=== PATIENT | female | born 2000 | race Caucasian/White ===

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

== ENCOUNTER 2019-05-06 19:24 | Emergency (ER) | payer OTHER ==
[~2019-05-06] VITALS: Ht 160 cm; Wt 61.7 kg
[~2019-05-06 19:24] MED LIST: DOXY100C2 PO
[2019-05-06] MEDS ORDERED: KETOROLAC 30 MG/ML VIAL. IV ONE (20:15)
[2019-05-06] MEDS ORDERED: ONDANSETRON PF 4 MG/2 ML VIAL. IV ONE (20:15)
[2019-05-06 20:30] LABS: U PREG PATIENT NEGATIVE (NEG)
[2019-05-06 20:36] LABS: BASO # 0.1 x10^3/uL (0.0-0.2); BASO % 1 % (0-3); EOS # 0.1 x10^3/uL (0.0-0.7); EOS % 1 % (0-3); HEMATOCRIT 38.9 % (36.0-47.0); HEMOGLOBIN 13.1 g/dL (12.0-15.5); LYMPH # 3.2 x10^3/uL (1.0-4.8); LYMPH % 37 % (24-48); MEAN CORPUSCULAR HEMOGLOBIN 30 pg (25-35); MEAN CORPUSCULAR HGB CONC 34 g/dL (31-37); MEAN CORPUSCULAR VOLUME 88 fL (79-100); MONO # 0.8 x10^3/uL (0.0-1.1); MONO % 9 % (0-9); NEUT # 4.5 x10^3uL (1.8-7.7); NEUT % 53 % (31-73); PLATELET COUNT 228 x10^3/uL (140-400); RED BLOOD COUNT 4.41 x10^6/uL (3.50-5.40); RED CELL DISTRIBUTION WIDTH 12.7 % (11.5-14.5); WHITE BLOOD COUNT 8.7 x10^3/uL (4.0-11.0)
[2019-05-06 20:36] LABS: BACTERIA,URINE 0 /HPF (0-FEW); BILIRUBIN,URINE NEG (NEG); CLARITY,URINE CLEAR; COLOR,URINE YELLOW; GLUCOSE,URINE NEG (NEG); NITRITE,URINE NEG (NEG); RBC,URINE 0 /HPF (0-2); SQUAMOUS EPITHELIAL CELL,UR MOD /LPF; UROBILINOGEN,URINE 0.2 mg/dL (0.2 mg/dL)
[2019-05-06 20:50] LABS: ALBUMIN 3.9 g/dL (3.4-5.0); ALBUMIN/GLOBULIN RATIO 1.2 (1.0-1.7); CALCIUM 9.3 mg/dL (8.5-10.1); CREATININE 0.9 mg/dL (0.6-1.0); GFR 79.8; POTASSIUM 3.8 mmol/L (3.5-5.1); TOTAL BILIRUBIN 0.3 mg/dL (0.2-1.0); TOTAL PROTEIN 7.2 g/dL (6.4-8.2)
[2019-05-06] MEDS ORDERED: AZITHROMYCIN 200 MG/5 ML ORAL.SUSP. PO STA ×2 (21:33→22:49)
[2019-05-06] MEDS ORDERED: AZITHROMYCIN 250 MG TABLET. PO ONE ×2 (21:45→23:00)
[2019-05-06] MEDS ORDERED: cefTRIAXone IM 250 MG VIAL IM ONE (21:45)
[2019-05-06] MEDS ORDERED: LIDOCAINE 1% Multi-Dose 20 ML VIAL. ONE (22:50)
--- NOTE | 2019-05-06 22:53 | RAD ---
Complete pelvic ultrasound COMPARISON: CT pelvis November 12, 2018. TECHNIQUE: Transabdominal transducer with grayscale and duplex Doppler sonography was utilized. HISTORY: Lower abdominal pain. FINDINGS: Anteverted uterus measures 4.2 x 8.6 x 5.8 cm. No uterine mass documented. There is an echogenic shadowing intrauterine device. Endometrium thickness 0.7 cm. Left ovary measures 2.9 x 2.5 x 3.3 cm with a 2.5 cm unilocular anechoic structure likely a dominant follicle. Right ovary measures 1.8 x 2.8 x 1.9 cm. There is intact bilateral ovarian blood flow documented. No pelvic fluid. IMPRESSION: Intrauterine device. Otherwise negative exam. Electronically signed by: Agusto Summers MD (05/06/2019 10:50 PM) [id number]
[2019-05-06] MEDS ORDERED: AZITHROMYCIN 250 MG TABLET. ONE (22:57)
--- NOTE | 2019-05-06 23:12 | PHYS DOC ---
Past History Past Medical History: No Pertinent History Past Surgical History: No Surgical History Alcohol Use: None Drug Use: None Adult General Chief Complaint Chief Complaint: ABDOMINAL PAIN HPI HPI Patient is a 19-year-old female who presents with complaint of suprapubic abdominal discomfort and vaginal discharge intermittently for about the last 4 days. She denies any actual pain with urination. She states that the discharge at times has a fishy odor. She states that initially the discharge was clear but most recently it has been white. She denies any fever, nausea or vomiting. She indicates that she has had a few loose stools. Patient states that nothing seems to worsen or improve the symptoms.[] Review of Systems Review of Systems Constitutional: Denies fever or chills [] Respiratory: Denies cough or shortness of breath [] Cardiovascular: No additional information not addressed in HPI [] GI: Complains of lower abdominal discomfort without vomiting or diarrhea [] : Denies dysuria or hematuria. Positive vaginal discharge. [] Neurologic: Denies headache, focal weakness or sensory changes [] All other systems were reviewed and found to be within normal limits, except as documented in this note. Current Medications Current Medications Current Medications Medications (Trade) Dose Ordered Sig/Melanie Start Time Stop Time Status Last Admin Dose Admin Azithromycin (Zithromax Oral Susp) 1,000 mg 1X STAT 05/06/19 22:49 05/06/19 23:05 DC Azithromycin (Zithromax) 1,000 mg 1X ONCE 05/06/19 23:00 05/06/19 23:06 DC 05/06/19 23:01 1,000 MG Ceftriaxone Sodium (Rocephin Im) 250 mg 1X ONCE 05/06/19 21:45 05/06/19 21:46 DC 05/06/19 23:03 250 MG Ketorolac Tromethamine (Toradol 30mg Vial) 30 mg 1X ONCE 05/06/19 20:15 05/06/19 20:16 DC 05/06/19 20:33 30 MG Lidocaine HCl 20 ml STK-MED ONCE 05/06/19 22:50 05/06/19 22:51 DC Ondansetron HCl (Zofran) 4 mg 1X ONCE 05/06/19 20:15 05/06/19 20:16 DC 05/06/19 20:33 4 MG Allergies Allergies Allergies Coded Allergies Type Severity Reaction Last Updated Verified Penicillins Allergy Intermediate 2/19/19 Yes Physical Exam Physical Exam Constitutional: Well developed, well nourished, no acute distress, non-toxic appearance. [] HENT: Normocephalic, atraumatic, bilateral external ears normal, oropharynx moist, no oral exudates, nose normal. [] Eyes: PERRLA, EOMI, conjunctiva normal, no discharge. [] Neck: Normal range of motion, no tenderness, supple, no stridor. [] Cardiovascular:Heart rate regular rhythm, no murmur [] Lungs & Thorax: Bilateral breath sounds clear to auscultation [] Abdomen: Bowel sounds normal, soft, with suprapubic tenderness. [] Skin: Warm, dry, no erythema, no rash. [] Extremities: No tenderness, no cyanosis, no clubbing, ROM intact, no edema. [] Neurologic: Alert and oriented X 3, no focal deficits noted. [] Current Patient Data Vital Signs Vital Signs Date Time Temp Pulse Resp B/P (MAP) Pulse Ox O2 Delivery O2 Flow Rate FiO2 05/06/19 19:24 98.0 74 14 97 Room Air Lab Results Laboratory Tests Test 05/06/19 19:30 05/06/19 19:54 05/06/19 20:15 Urine Collection Type Unknown Urine Color Yellow Urine Clarity Clear Urine pH 5.0 Urine Specific [place] >=1.030 Urine Protein 30 mg/dl (NEG-TRACE) Urine Glucose (UA) Neg mg/dL (NEG) Urine Ketones (Stick) Trace mg/dL (NEG) Urine Blood Neg (NEG) Urine Nitrite Neg (NEG) Urine Bilirubin Neg (NEG) Urine Urobilinogen Dipstick 0.2 mg/dL (0.2 mg/dL) Urine Leukocyte Esterase Neg (NEG) Urine RBC 0 /HPF (0-2) Urine WBC 1-4 /HPF (0-4) Urine Squamous Epithelial Cells Mod /LPF Urine Bacteria 0 /HPF (0-FEW) Urine Mucus Mod /LPF Urine Test Negative (NEG) White Blood Count 8.7 x10^3/uL (4.0-11.0) Red Blood Count 4.41 x10^6/uL (3.50-5.40) Hemoglobin 13.1 g/dL (12.0-15.5) Hematocrit 38.9 % (36.0-47.0) Mean Corpuscular Volume 88 fL (79-100) Mean Corpuscular Hemoglobin 30 pg (25-35) Mean Corpuscular Hemoglobin Concent 34 g/dL (31-37) Red Cell Distribution Width 12.7 % (11.5-14.5) Platelet Count 228 x10^3/uL (140-400) Neutrophils (%) (Auto) 53 % (31-73) Lymphocytes (%) (Auto) 37 % (24-48) Monocytes (%) (Auto) 9 % (0-9) Eosinophils (%) (Auto) 1 % (0-3) Basophils (%) (Auto) 1 % (0-3) Neutrophils # (Auto) 4.5 x10^3uL (1.8-7.7) Lymphocytes # (Auto) 3.2 x10^3/uL (1.0-4.8) Monocytes # (Auto) 0.8 x10^3/uL (0.0-1.1) Eosinophils # (Auto) 0.1 x10^3/uL (0.0-0.7) Basophils # (Auto) 0.1 x10^3/uL (0.0-0.2) Sodium Level 141 mmol/L (136-145) Potassium Level 3.8 mmol/L (3.5-5.1) Chloride Level 106 mmol/L (98-107) Carbon Dioxide Level 26 mmol/L (21-32) Anion Gap 9 (6-14) Blood Urea Nitrogen 13 mg/dL (7-20) Creatinine 0.9 mg/dL (0.6-1.0) Estimated GFR (Cockcroft-Gault) 79.8 BUN/Creatinine Ratio 14 (6-20) Glucose Level 100 mg/dL (70-99) H Calcium Level 9.3 mg/dL (8.5-10.1) Total Bilirubin 0.3 mg/dL (0.2-1.0) Aspartate Amino Transferase (AST) 17 U/L (15-37) Alanine Aminotransferase (ALT) 16 U/L (14-59) Alkaline Phosphatase 100 U/L (46-116) Total Protein 7.2 g/dL (6.4-8.2) Albumin 3.9 g/dL (3.4-5.0) Albumin/Globulin Ratio 1.2 (1.0-1.7) Lipase 128 U/L (73-393) Microbiology 05/06/19 Wet Prep - Final, Complete EKG EKG [] Radiology/Procedures Radiology/Procedures [] Impressions: PROCEDURE: PELVIS COMPLETE Complete pelvic ultrasound COMPARISON: CT pelvis November 12, 2018. TECHNIQUE: Transabdominal transducer with grayscale and duplex Doppler sonography was utilized. HISTORY: Lower abdominal pain. FINDINGS: Anteverted uterus measures 4.2 x 8.6 x 5.8 cm. No uterine mass documented. There is an echogenic shadowing intrauterine device. Endometrium thickness 0.7 cm. Left ovary measures 2.9 x 2.5 x 3.3 cm with a 2.5 cm unilocular anechoic structure likely a dominant follicle. Right ovary measures 1.8 x 2.8 x 1.9 cm. There is intact bilateral ovarian blood flow documented. No pelvic fluid. IMPRESSION: Intrauterine device. Otherwise negative exam. Electronically signed by: Agusto Summers MD (05/06/2019 10:50 PM) [facility] Course & Med Decision Making Course & Med Decision Making Pertinent Labs and Imaging studies reviewed. (See chart for details) Patient moved to room upon arrival was evaluated by your medical staff after which an IV was established and blood work drawn. I did discuss pelvic exam with patient and indicated that alternatively she could perform collection of samples on her own. Patient preferred not to do the pelvic exam and to collect samples on her own. Dragon Disclaimer Dragon Disclaimer This electronic medical record was generated, in whole or in part, using a voice recognition dictation system. Departure Departure: Impression: Primary Impression: Suprapubic abdominal pain Additional Impression: Vaginal discharge Disposition: 01 HOME, SELF-CARE Condition: STABLE Referrals: ANTHONY GRIMES PA-C (PCP) Patient Instructions: Abdominal Pain Scripts Tramadol Hcl (TRAMADOL HCL) 50 Mg Tablet 50 MG PO PRN Q6HRS PRN for PAIN, #12 TAB Prov: JARED PARMAR Jr. DO 05/06/19 Problem Qualifiers JARED PARMAR Jr. DO May 06, 2019 23:12
[2019-05-06] MEDS ORDERED: TRAM50TA PO (23:21)
[2019-05-06 23:45] VITALS: BP 123/67
[2019-05-06] MEDS ORDERED: traMADol 50 MG TABLET ONE (23:58)
[2019-05-07] MEDS ORDERED: traMADol 50 MG TABLET PO ONE
[2019-05-08 18:11] LABS: CHLAMYDIA PROBE Negative (Negative)
== END 2019-05-07 | disposition home or self-care (01) ==
LOC: ER 19:24
DX: N89.8 Other specified noninflammatory disorders of vagina (principal); R10.30 Lower abdominal pain, unspecified; R19.7 Diarrhea, unspecified; Z88.0 Allergy status to penicillin
CPT/HCPCS: 36415; 76856; 80053; 81001; 81025; 83690; 85025; 87491; 87591; 96372; 96374; 96375; 99285; J0456; J0696; J1885; J2405; Q0111

== ENCOUNTER 2019-08-10 15:15 | Emergency (ER) | payer OTHER ==
[~2019-08-10 15:15] MED LIST changes: +TRAM50TA PO
[2019-08-10 15:22] VITALS: BP 109/67
[2019-08-10] MEDS ORDERED: AZIT250T6 PO (15:35)
--- NOTE | 2019-08-10 15:35 | PHYS DOC ---
Past History Past Medical History: No Pertinent History Past Surgical History: No Surgical History Alcohol Use: None Drug Use: None Adult General Chief Complaint Chief Complaint: SORE THROAT HPI HPI Patient is a 19-year-old female who presents with a sore throat and fever. She states is been ongoing for 2 days. She states she feels a little bit better than yesterday because the body aches have subsided. She denies any nausea or vomiting. She denies any rash. She has had a sick contact.[] Review of Systems Review of Systems Constitutional: Denies fever or chills [] Eyes: Denies change in visual acuity, redness, or eye pain [] HENT: Per history of present illness[] Respiratory: Denies cough or shortness of breath [] Cardiovascular: No additional information not addressed in HPI [] GI: Denies abdominal pain, nausea, vomiting, bloody stools or diarrhea [] : Denies dysuria or hematuria [] Musculoskeletal: Denies back pain or joint pain [] Integument: Denies rash or skin lesions [] Neurologic: Denies headache, focal weakness or sensory changes [] Endocrine: Denies polyuria or polydipsia [] All other systems were reviewed and found to be within normal limits, except as documented in this note. Allergies Allergies Allergies Coded Allergies Type Severity Reaction Last Updated Verified Penicillins Allergy Intermediate 11/12/18 Yes Physical Exam Physical Exam Constitutional: Well developed, well nourished, no acute distress, non-toxic appearance. [] HENT: Normocephalic, atraumatic, bilateral external ears normal, posterior pharynx is erythematous with tonsillar exudate[] Eyes: PERRLA, EOMI, conjunctiva normal, no discharge. [] Neck: Normal range of motion, no tenderness, supple, no stridor. [] Cardiovascular:Heart rate regular rhythm, no murmur [] Lungs & Thorax: Bilateral breath sounds clear to auscultation [] Abdomen: Bowel sounds normal, soft, no tenderness, no masses, no pulsatile masses. [] Skin: Warm, dry, no erythema, no rash. [] . [] Current Patient Data Vital Signs Vital Signs Date Time Temp Pulse Resp B/P (MAP) Pulse Ox O2 Delivery O2 Flow Rate FiO2 08/10/19 15:22 98.0 81 18 96 Room Air EKG EKG [] Radiology/Procedures Radiology/Procedures [] Course & Med Decision Making Course & Med Decision Making Pertinent Labs and Imaging studies reviewed. (See chart for details) [] Dragon Disclaimer Dragon Disclaimer This electronic medical record was generated, in whole or in part, using a voice recognition dictation system. Departure Departure: Impression: Primary Impression: Pharyngitis Disposition: HOME, SELF-CARE Condition: STABLE Referrals: ANTHONY GRIMES PA-C (PCP) Patient Instructions: Viral and Bacterial Pharyngitis Additional Instructions: Return to the emergency department with any new or concerning symptoms Scripts Azithromycin (AZITHROMYCIN TABLET) 250 Mg Tablet 1 PKG PO UD for bronchitis, #6 TAB Take 2 tablets today and then one tablet every day thereafter for the next 4 days Prov: ADRIANO CARDONA DO 08/10/19 Problem Qualifiers Primary Impression: Pharyngitis Pharyngitis/tonsillitis etiology: streptococcus Qualified Codes: J02.0 - Streptococcal pharyngitis ADRIANO CARDONA DO Aug 10, 2019 15:35
== END 2019-08-10 15:35 | disposition home or self-care (01) ==
LOC: ER 15:15
DX: J02.0 Streptococcal pharyngitis (principal); B95.0 Streptococcus, group A, as the cause of diseases classified elsewhere; Z88.0 Allergy status to penicillin
CPT/HCPCS: 99283

== ENCOUNTER 2019-09-17 22:10 | Emergency (ER) | payer OTHER ==
[~2019-09-17] VITALS: Ht 157.5 cm; Wt 61.2 kg
[~2019-09-17 22:10] MED LIST changes: +AZIT250T6 PO
[2019-09-17 22:51] LABS: BASO % 0 % (0-3); EOS % 1 % (0-3); HEMATOCRIT 36.2 % (36.0-47.0); HEMOGLOBIN 12.3 g/dL (12.0-15.5); LYMPH # 2.7 x10^3/uL (1.0-4.8); LYMPH % 35 % (24-48); MEAN CORPUSCULAR HEMOGLOBIN 30 pg (25-35); MEAN CORPUSCULAR HGB CONC 34 g/dL (31-37); MEAN CORPUSCULAR VOLUME 87 fL (79-100); MONO % 14 % (0-9); NEUT # 3.9 x10^3uL (1.8-7.7); NEUT % 51 % (31-73); PLATELET COUNT 198 x10^3/uL (140-400); RED BLOOD COUNT 4.17 x10^6/uL (3.50-5.40); RED CELL DISTRIBUTION WIDTH 12.7 % (11.5-14.5); WHITE BLOOD COUNT 7.6 x10^3/uL (4.0-11.0)
[2019-09-17 22:58] LABS: CALCIUM 8.4 mg/dL (8.5-10.1); CREATININE 0.8 mg/dL (0.6-1.0); GFR 91.4; POTASSIUM 3.6 mmol/L (3.5-5.1)
[2019-09-17 23:05] LABS: ALBUMIN 3.6 g/dL (3.4-5.0); TOTAL BILIRUBIN 0.2 mg/dL (0.2-1.0); TOTAL PROTEIN 7.1 g/dL (6.4-8.2)
[2019-09-17 23:13] LABS: U PREG PATIENT POSITIVE (NEG)
[2019-09-17 23:22] LABS: COLOR,URINE YELLOW
[2019-09-17 23:23] LABS: BACTERIA,URINE FEW /HPF (0-FEW); BILIRUBIN,URINE NEG (NEG); CLARITY,URINE HAZY; GLUCOSE,URINE NEG (NEG); NITRITE,URINE NEG (NEG); SQUAMOUS EPITHELIAL CELL,UR MOD /LPF
--- NOTE | 2019-09-17 23:24 | PHYS DOC ---
Past History Past Medical History: No Pertinent History Past Surgical History: No Surgical History Alcohol Use: None Drug Use: None Adult General Chief Complaint Chief Complaint: ABDOMINAL PAIN HPI HPI 19-year-old female presents with abdominal pain and vaginal discharge. The patient took a home test was +3 days ago. Since that time, she has had lower abdominal cramping that radiates into her low back. She's also had nausea and dry heaves. She denies fever or chills. The patient is in the and is also had some dizziness with PT the last couple days. She has had thin but increased volume of vaginal discharge. It is malodorous. She is sexually active. Review of Systems Review of Systems Constitutional: Denies fever or chills [] Eyes: Denies change in visual acuity, redness, or eye pain [] HENT: Denies nasal congestion or sore throat [] Respiratory: Denies cough or shortness of breath [] Cardiovascular: No additional information not addressed in HPI [] GI: Upper pubic abdominal pain, nausea, vomiting. Denies bloody stools or diarrhea [] : Increased vaginal discharge[] Musculoskeletal: Denies back pain or joint pain [] Integument: Denies rash or skin lesions [] Neurologic: Denies headache, focal weakness or sensory changes [] Endocrine: Denies polyuria or polydipsia [] All other systems were reviewed and found to be within normal limits, except as documented in this note. Allergies Allergies Allergies Coded Allergies Type Severity Reaction Last Updated Verified Penicillins Allergy Intermediate 11/12/18 Yes Physical Exam Physical Exam Constitutional: Well developed, well nourished, no acute distress, non-toxic appearance. [] HENT: Normocephalic, atraumatic, bilateral external ears normal, oropharynx moist, no oral exudates, nose normal. [] Eyes: PERRLA, EOMI, conjunctiva normal, no discharge. [] Neck: Normal range of motion, no tenderness, supple, no stridor. [] Cardiovascular:Heart rate regular rhythm, no murmur [] Lungs & Thorax: Bilateral breath sounds clear to auscultation [] Abdomen: Bowel sounds normal, soft, no tenderness, no masses, no pulsatile masses. [] Skin: Warm, dry, no erythema, no rash. [] Back: No tenderness, no CVA tenderness. [] Extremities: No tenderness, no cyanosis, no clubbing, ROM intact, no edema. [] Neurologic: Alert and oriented X 3, normal motor function, normal sensory function, no focal deficits noted. [] Psychologic: Affect normal, judgement normal, mood normal. [] Current Patient Data Vital Signs Vital Signs Date Time Temp Pulse Resp B/P (MAP) Pulse Ox O2 Delivery O2 Flow Rate FiO2 09/17/19 22:10 98.7 89 14 98 Room Air Lab Results Laboratory Tests Test 09/17/19 22:20 White Blood Count 7.6 x10^3/uL (4.0-11.0) Red Blood Count 4.17 x10^6/uL (3.50-5.40) Hemoglobin 12.3 g/dL (12.0-15.5) Hematocrit 36.2 % (36.0-47.0) Mean Corpuscular Volume 87 fL (79-100) Mean Corpuscular Hemoglobin 30 pg (25-35) Mean Corpuscular Hemoglobin Concent 34 g/dL (31-37) Red Cell Distribution Width 12.7 % (11.5-14.5) Platelet Count 198 x10^3/uL (140-400) Neutrophils (%) (Auto) 51 % (31-73) Lymphocytes (%) (Auto) 35 % (24-48) Monocytes (%) (Auto) 14 % (0-9) H Eosinophils (%) (Auto) 1 % (0-3) Basophils (%) (Auto) 0 % (0-3) Neutrophils # (Auto) 3.9 x10^3uL (1.8-7.7) Lymphocytes # (Auto) 2.7 x10^3/uL (1.0-4.8) Monocytes # (Auto) 1.0 x10^3/uL (0.0-1.1) Eosinophils # (Auto) 0.0 x10^3/uL (0.0-0.7) Basophils # (Auto) 0.0 x10^3/uL (0.0-0.2) Urine Test Positive (NEG) Sodium Level 137 mmol/L (136-145) Potassium Level 3.6 mmol/L (3.5-5.1) Chloride Level 102 mmol/L (98-107) Carbon Dioxide Level 24 mmol/L (21-32) Anion Gap 11 (6-14) Blood Urea Nitrogen 9 mg/dL (7-20) Creatinine 0.8 mg/dL (0.6-1.0) Estimated GFR (Cockcroft-Gault) 91.4 BUN/Creatinine Ratio 11 (6-20) Glucose Level 75 mg/dL (70-99) Calcium Level 8.4 mg/dL (8.5-10.1) L Total Bilirubin 0.2 mg/dL (0.2-1.0) Aspartate Amino Transferase (AST) 14 U/L (15-37) L Alanine Aminotransferase (ALT) 19 U/L (14-59) Alkaline Phosphatase 74 U/L (46-116) Total Protein 7.1 g/dL (6.4-8.2) Albumin 3.6 g/dL (3.4-5.0) Albumin/Globulin Ratio 1.0 (1.0-1.7) EKG EKG [] Radiology/Procedures Radiology/Procedures [] Impressions: Exam: Ultrasound OB less than 14 weeks Indication: Abnormal cramping Technique: Real-time grayscale and color Doppler images of the pelvis were obtained by the department pecan huller. Comparisons: 05/06/2019 FINDINGS: Uterus measures 11.1 x 7.6 x 6.1 cm. Within the endometrium there is a gestational sac with internal yolk sac and pole. [place]-rump length measured at 2.0 cm with a heart rate of 175 bpm Right ovary measures 3.3 x 2.7 x 2.3 cm. Left ovary measures 3.2 x 1.7 x 2.0 cm. Vascular flow noted within the ovaries bilaterally. No free fluid. IMPRESSION: 1. Single live intrauterine gestation measured at 8 weeks 4 days discordant with LMP. 2. Dedicated survey is recommended at 18-20 weeks gestation. Electronically signed by: Bayron Greene MD (09/18/2019 12:32 AM) [facility] DICTATED AND SIGNED BY: BAYRON GREENE MD DATE: 09/18/19 0032 CC: TASH HICKS DO; DELMA HUSTON POWER TECHNICIAN-C ~ Course & Med Decision Making Course & Med Decision Making Pertinent Labs and Imaging studies reviewed. (See chart for details) Patient is 8 weeks according to ultrasound. See official report for details. The patient's wet prep was significant for bacterial vaginosis. I will treat her with 2 g of Flagyl in the emergency room. The patient will follow up with OB to establish care. She is stable for discharge at this time. [] Dragon Disclaimer Dragon Disclaimer This electronic medical record was generated, in whole or in part, using a voice recognition dictation system. Departure Departure: Impression: Primary Impression: Additional Impression: Bacterial vaginosis in Disposition: HOME, SELF-CARE Condition: STABLE Referrals: DELMA HUSTON-Lor (PCP) Patient Instructions: Bacterial Vaginosis, [id number], - First Trimester, [id number] Problem Qualifiers Primary Impression: Weeks of gestation: 8 weeks Qualified Codes: Z3A.08 - 8 weeks gestation of TASH HICKS DO Sep 17, 2019 23:24
[2019-09-17] MEDS ORDERED: IV NORMAL SALINE 1,000ML 1,000 ML IV ONE (23:45)
--- NOTE | 2019-09-18 00:35 | RAD ---
Exam: Ultrasound OB less than 14 weeks Indication: Abnormal cramping Technique: Real-time grayscale and color Doppler images of the pelvis were obtained by the department centrifuge separator tender. Comparisons: 05/06/2019 FINDINGS: Uterus measures 11.1 x 7.6 x 6.1 cm. Within the endometrium there is a gestational sac with internal yolk sac and pole. [place]-rump length measured at 2.0 cm with a heart rate of 175 bpm Right ovary measures 3.3 x 2.7 x 2.3 cm. Left ovary measures 3.2 x 1.7 x 2.0 cm. Vascular flow noted within the ovaries bilaterally. No free fluid. IMPRESSION: 1. Single live intrauterine gestation measured at 8 weeks 4 days discordant with LMP. 2. Dedicated survey is recommended at 18-20 weeks gestation. Electronically signed by: Bayron Correia MD (09/18/2019 12:32 AM) [facility]
[2019-09-18 02:00] VITALS: BP 113/86
[2019-09-18] MEDS ORDERED: metroNIDAZOLE 500 MG TABLET PO ONE (02:00)
[2019-09-19 19:07] LABS: CHLAMYDIA PROBE Negative (Negative)
== END 2019-09-18 02:05 | disposition home or self-care (01) ==
LOC: ER 22:10
DX: O23.591 Infection of other part of genital tract in pregnancy, first trimester (principal); B96.89 Other specified bacterial agents as the cause of diseases classified elsewhere; Z3A.08 8 weeks gestation of pregnancy; Z88.0 Allergy status to penicillin
CPT/HCPCS: 36415; 76801; 76817; 80053; 81001; 81025; 84702; 85025; 87086; 87491; 87591; 99285; Q0111; J7030

== ENCOUNTER 2020-02-22 22:10 | Emergency (ER) | payer OTHER ==
[~2020-02-22] VITALS: Ht 160 cm; Wt 70.6 kg
--- NOTE | 2020-02-22 22:20 | PHYS DOC ---
Past History Past Medical History: No Pertinent History Past Medical History G2, Mis. carry 1 Past Surgical History: No Surgical History Alcohol Use: None Drug Use: None General Adult HPI: HPI: "...I been having some back pain.. and this rib spot hurts.. I have not taking any thing... I did not know what I could take.. but I was just getting co ncerned.. the back pain sometimes runs down my leg..numb/ shock..like... here on the right..." Patient is a 20 year old female who presents with above hx and complaints of lumbar sciatic pain on the right. Pain is worse on straight leg lift. Patient denies any problems with defecation or urination. Patient denies any fever or chills. Patient denies any vaginal discharge. Patient is 31 weeks gravid with her second . First was lost by miscarriage. With premature rupture of membranes. Patient denies any trauma. Patient denies any history of coagulopathy with her family members. Patient normally follows with ANN Simeon at [facility]. Pt. does take her vitamin. [place] recent travel outside the [place]. No specific ill contacts. Patient has not taken any Tylenol for her discomfort. Review of Systems: Review of Systems: Constitutional: Denies fever or chills Eyes: Denies change in visual acuity HENT: Denies nasal congestion or sore throat Respiratory: Denies cough or shortness of breath Cardiovascular: Denies chest pain or edema GI: Denies abdominal pain, nausea, vomiting, bloody stools or diarrhea : Denies dysuria Musculoskeletal: Complaints of Rt. lower back pain - Sciatica Integument: Denies rash Neurologic: Denies headache, focal weakness or sensory changes Endocrine: Denies polyuria or polydipsia Lymphatic: Denies swollen glands Psychiatric: Denies depression or anxiety Heart Score: Risk Factors: Risk Factors: DM, Current or recent (<one month) smoker, HTN, HLP, family history of CAD, obesity. Risk Scores: Score 0 - 3: 2.5% MACE over next 6 weeks - Discharge Home Score 4 - 6: 20.3% MACE over next 6 weeks - Admit for Clinical Observation Score 7 - 10: 72.7% MACE over next 6 weeks - Early Invasive Strategies Family History: Family History: Noncontributory to presentation Current Medications: Current Meds: See nursing for home medications Allergies: Allergies: Allergies Coded Allergies Type Severity Reaction Last Updated Verified Penicillins Allergy Intermediate 11/12/18 Yes Physical Exam: PE: Constitutional: Well developed, well nourished, no acute distress, non-toxic appearance. [] HENT: Normocephalic, atraumatic, bilateral external ears normal, oropharynx moist, no oral exudates, nose normal. [] Eyes: PERRLA, EOMI, conjunctiva normal, no discharge. [] Neck: Normal range of motion, no tenderness, supple, no stridor. [] Cardiovascular:Heart rate regular rhythm, no murmur [] Lungs & Thorax: Bilateral breath sounds equal apex on auscultation []. Some right lower floating rib pain at L2 level. Reproducible on palpation of a 1 cm area anterior axillary line. Abdomen: Bowel sounds normal, soft, no tenderness, no masses, no pulsatile masses. Gravid. Very active movements. heart rate variable. Count of 154 by ultrasound. No free fluid. No findings of hydronephrosis. Bedside ultrasound. Skin: Warm, dry, no erythema, no rash. [] Back: Rt. sciatic nerve tenderness, no CVA tenderness. [] Extremities: No tenderness, no cyanosis, no clubbing, ROM intact, no edema. [] Mild right sciatic tenderness on palpation Neurologic: Alert and oriented X 3, normal motor function, normal sensory function, no focal deficits noted. [] DTRs +2 patella. Psychologic: Affect anxious, judgement normal, mood normal. [] EKG: EKG: [] Radiology/Procedures: Radiology/Procedures: [] Course & Med Decision Making: Course & Med Decision Making Pertinent Labs and Imaging studies reviewed. (See chart for details) Patient to push fluids. Take Tylenol as needed for pain. Keep follow-up with her primary and nurse practitioner Cailin. Reviewed urine results with primary care. Return if any concerns. [] Pat Disclaimer: Pat Disclaimer: This electronic medical record was generated, in whole or in part, using a voice recognition dictation system. Departure Departure: Disposition: HOME/RESIDENCE PRIOR TO ADM Condition: STABLE Referrals: DELMA SIMEON (PCP) Scripts Acetaminophen (ACETAMINOPHEN) 500 Mg Tablet 1000 MG PO QIDPRN PRN for pain/fever, #120 TAB Prov: NICHOLE LIZ MD 02/22/20 Dragon Disclaimer This chart was dictated in whole or in part using Voice Recognition software in a busy, high-work load, and often noisy Emergency Department environment. It may contain unintended and wholly unrecognized errors or omissions. Dragon Disclaimer This chart was dictated in whole or in part using Voice Recognition software in a busy, high-work load, and often noisy Emergency Department environment. It may contain unintended and wholly unrecognized errors or omissions. NICHOLE LIZ MD February 22, 2020 22:20
[2020-02-22] MEDS ORDERED: ACETAMINOPHEN 500 MG TABLET PO ONE (22:30)
[2020-02-22 22:31] VITALS: BP 122/64
[2020-02-22 23:13] LABS: BARBITURATES NEG (NEG); BENZODIAZEPINES NEG (NEG); CANNABINOIDS NEG (NEG); COCAINE NEG (NEG); METHADONE NEG (NEG); OPIATES NEG (NEG); PHENCYCLIDINE NEG (NEG)
[2020-02-22 23:15] LABS: AMPHETAMINE/METHAMPHETAMINE NEG (NEG)
[2020-02-22 23:16] LABS: CLARITY,URINE HAZY; COLOR,URINE YELLOW; GLUCOSE,URINE NEG (NEG)
[2020-02-22 23:17] LABS: BACTERIA,URINE FEW /HPF (0-FEW); BILIRUBIN,URINE NEG (NEG); NITRITE,URINE NEG (NEG); RBC,URINE RARE /HPF (0-2); UROBILINOGEN,URINE 0.2 mg/dL (0.2 mg/dL)
[2020-02-22 23:18] LABS: AMORPHOUS SEDIMENT,UR PRESENT /HPF; SQUAMOUS EPITHELIAL CELL,UR FEW /LPF
[2020-02-22] MEDS ORDERED: ACET500T68 PO (23:41)
== END 2020-02-22 23:44 | disposition home or self-care (01) ==
LOC: ER 22:10
DX: O26.893 Other specified pregnancy related conditions, third trimester (principal); M54.42 Lumbago with sciatica, left side; R07.81 Pleurodynia; Z3A.31 31 weeks gestation of pregnancy; Z88.0 Allergy status to penicillin
CPT/HCPCS: 36415; 80307; 81001; 99284

== ENCOUNTER 2020-03-13 16:56 | Emergency (ER) | payer OTHER ==
[~2020-03-13] VITALS: Ht 160 cm; Wt 68.0 kg
[~2020-03-13 16:56] MED LIST changes: +ACET500T68 PO
--- NOTE | 2020-03-13 17:44 | PHYS DOC ---
Past History Past Medical History: No Pertinent History Past Surgical History: Other Additional Past Surgical Histo: wisdom teeth extraction Alcohol Use: None Drug Use: None General Adult EDM: Chief Complaint: SORE THROAT HPI: HPI: 20-year-old female presents with 2-day history of sore throat. She has no other significant symptoms. Her younger daughter has a runny nose, that is her only symptom. Patient denies fever or chills. No known COVID-19 exposures. Review of Systems: Review of Systems: Constitutional: Denies fever or chills Eyes: Denies change in visual acuity HENT: Sore throat Respiratory: Denies cough or shortness of breath Cardiovascular: Denies chest pain or edema GI: Denies abdominal pain, nausea, vomiting, bloody stools or diarrhea : Denies dysuria Musculoskeletal: Denies back pain or joint pain Integument: Denies rash Neurologic: Denies headache, focal weakness or sensory changes Endocrine: Denies polyuria or polydipsia Lymphatic: Denies swollen glands Psychiatric: Denies depression or anxiety Heart Score: Risk Factors: Risk Factors: DM, Current or recent (<one month) smoker, HTN, HLP, family history of CAD, obesity. Risk Scores: Score 0 - 3: 2.5% MACE over next 6 weeks - Discharge Home Score 4 - 6: 20.3% MACE over next 6 weeks - Admit for Clinical Observation Score 7 - 10: 72.7% MACE over next 6 weeks - Early Invasive Strategies Allergies: Allergies: Allergies Coded Allergies Type Severity Reaction Last Updated Verified Penicillins Allergy Intermediate 11/12/18 Yes Physical Exam: PE: Constitutional: Well developed, well nourished, no acute distress, non-toxic appearance. [] HENT: Normocephalic, atraumatic, bilateral external ears normal, oropharynx moist, no oral exudates, nose normal. [] Eyes: PERRLA, EOMI, conjunctiva normal, no discharge. [] Neck: Normal range of motion, no tenderness, supple, no stridor. [] Cardiovascular:Heart rate regular rhythm, no murmur [] Lungs & Thorax: Bilateral breath sounds clear to auscultation [] Abdomen: Bowel sounds normal, soft, no tenderness, no masses, no pulsatile masses. [] Skin: Warm, dry, no erythema, no rash. [] Back: No tenderness, no CVA tenderness. [] Extremities: No tenderness, no cyanosis, no clubbing, ROM intact, no edema. [] Neurologic: Alert and oriented X 3, normal motor function, normal sensory function, no focal deficits noted. [] Psychologic: Affect normal, judgement normal, mood normal. [] EKG: EKG: [] Radiology/Procedures: Radiology/Procedures: [] Course & Med Decision Making: Course & Med Decision Making Pertinent Labs and Imaging studies reviewed. (See chart for details) The patient's rapid strep is negative. This is likely viral pharyngitis or allergies. I have advised supportive care. She is stable for discharge at this time. [] Dragon Disclaimer: Dragon Disclaimer: This electronic medical record was generated, in whole or in part, using a voice recognition dictation system. Departure Departure: Impression: Primary Impression: Viral pharyngitis Disposition: HOME/RESIDENCE PRIOR TO ADM Condition: STABLE Referrals: LILY ELDRIDGE (PCP) Patient Instructions: Viral Pharyngitis Justification of Admission: Justification of Admission: Justification of Admission Dx: N/A TASH HICKS DO Mar 13, 2020 17:44
[2020-03-13 18:54] VITALS: BP 118/72
== END 2020-03-13 18:02 | disposition home or self-care (01) ==
LOC: ER 16:56
DX: O99.513 Diseases of the respiratory system complicating pregnancy, third trimester (principal); J02.9 Acute pharyngitis, unspecified; B97.89 Other viral agents as the cause of diseases classified elsewhere; Z3A.34 34 weeks gestation of pregnancy; Z88.0 Allergy status to penicillin
CPT/HCPCS: 87070; 87880; 99283

== ENCOUNTER 2020-10-26 10:11 | Emergency (ER) | payer OTHER ==
[~2020-10-26] VITALS: Ht 160 cm; Wt 65.1 kg
[2020-10-26 10:55] VITALS: BP 123/90
[2020-10-26 11:55] LABS: BASO # 0.1 x10^3/uL (0.0-0.2); BASO % 1 % (0-3); EOS # 0.1 x10^3/uL (0.0-0.7); EOS % 1 % (0-3); HEMATOCRIT 40.1 % (36.0-47.0); HEMOGLOBIN 13.4 g/dL (12.0-15.5); LYMPH # 2.2 x10^3/uL (1.0-4.8); LYMPH % 31 % (24-48); MEAN CORPUSCULAR HEMOGLOBIN 29 pg (25-35); MEAN CORPUSCULAR HGB CONC 33 g/dL (31-37); MEAN CORPUSCULAR VOLUME 86 fL (79-100); MONO # 0.5 x10^3/uL (0.0-1.1); MONO % 8 % (0-9); NEUT # 4.2 x10^3uL (1.8-7.7); NEUT % 60 % (31-73); PLATELET COUNT 261 x10^3/uL (140-400); RED BLOOD COUNT 4.66 x10^6/uL (3.50-5.40); RED CELL DISTRIBUTION WIDTH 12.7 % (11.5-14.5)
--- NOTE | 2020-10-26 12:01 | RAD ---
XR CHEST 1V 10/26/2020 11:31 AM INDICATION: Shortness of air COMPARISON: None available TECHNIQUE: Portable frontal view of the chest is provided. FINDINGS: The cardiomediastinal silhouette is within normal limits. Lungs are clear. There are no significant pleural effusions. There is no pulmonary vascular congestion. No pneumothora x. No suspicious osseous abnormality. IMPRESSION: There is no acute cardiopulmonary process. Electronically signed by: Rhea Benitez MD (10/26/2020 11:59 AM) [id number]
[2020-10-26 12:05] LABS: CALCIUM 8.9 mg/dL (8.5-10.1); CREATININE 0.9 mg/dL (0.6-1.0); POTASSIUM 3.8 mmol/L (3.5-5.1)
[2020-10-26 12:11] LABS: DIRECT BILIRUBIN 0.2 mg/dL (0.0-0.2); TOTAL BILIRUBIN 0.7 mg/dL (0.2-1.0); TOTAL PROTEIN 7.5 g/dL (6.4-8.2)
--- NOTE | 2020-10-26 12:30 | PHYS DOC ---
Past History Past Medical History: No Pertinent History Past Surgical History: No Surgical History Additional Past Surgical Histo: wisdom teeth extraction Alcohol Use: None Drug Use: None General Adult EDM: Chief Complaint: SOA HPI: HPI: This is a pleasant 20-year-old female recently diagnosed with Covid who presents emergency department with worsening shortness of breath. She describes shortness of breath in between walking to the bathroom. She denies chest pain or unilateral leg swelling. She denies hemoptysis. She denies history of DVT or PE. Her fever has abated however she does still have a mild cough. Review of systems negative for headache vomiting nuchal rigidity rashes. All other review of systems negative. ED course: 20-year-old female presenting with shortness of breath. Chest x-ray and blood work unremarkable. Negative D-dimer. Patient is well-appearing with normal oxygen levels with normal pulmonary examination. She is resting comfortably and breathing comfortably in examination room. We will discharge her to follow-up with her PCP in 1 to 2 days. The patient has been examined and was not found to have an emergency medical condition. The patient was then discharged home in stable condition to follow up with their primary care physician over the next 1-2 days. They were to return if their symptoms worsened or if they were concerned for any reason. They were also instructed to return to the emergency department if they were unable to get the recommended and appropriate follow-up. [id number] discharge instructions and return precautions were given. Patient's questions were answered to their satisfaction. Patient is comfortable with plan. Allergies: Allergies: Allergies Coded Allergies Type Severity Reaction Last Updated Verified Penicillins Allergy Intermediate 11/12/18 Yes Physical Exam: PE: Constitutional: Well developed, well nourished, no acute distress, non-toxic appearance. [] HENT: Normocephalic, atraumatic, bilateral external ears normal, oropharynx moist, no oral exudates, nose normal. [] Eyes: PERRLA, EOMI, conjunctiva normal, no discharge. [] Neck: Normal range of motion, no tenderness, supple, no stridor. [] Cardiovascular:Heart rate regular rhythm, no murmur [] Lungs & Thorax: Bilateral breath sounds clear to auscultation [] Abdomen: Bowel sounds normal, soft, no tenderness, no masses, no pulsatile masses. [] Skin: Warm, dry, no erythema, no rash. [] Back: No tenderness, no CVA tenderness. [] Extremities: No tenderness, no cyanosis, no clubbing, ROM intact, no edema. [] Neurologic: Alert and oriented X 3, normal motor function, normal sensory function, no focal deficits noted. [] Psychologic: Affect normal, judgement normal, mood normal. [] Current Patient Data: Labs: Laboratory Tests Test 10/26/20 11:19 10/26/20 11:35 POC Urine HCG, Qualitative hcg negative (Negative) White Blood Count 7.0 x10^3/uL (4.0-11.0) Red Blood Count 4.66 x10^6/uL (3.50-5.40) Hemoglobin 13.4 g/dL (12.0-15.5) Hematocrit 40.1 % (36.0-47.0) Mean Corpuscular Volume 86 fL (79-100) Mean Corpuscular Hemoglobin 29 pg (25-35) Mean Corpuscular Hemoglobin Concent 33 g/dL (31-37) Red Cell Distribution Width 12.7 % (11.5-14.5) Platelet Count 261 x10^3/uL (140-400) Neutrophils (%) (Auto) 60 % (31-73) Lymphocytes (%) (Auto) 31 % (24-48) Monocytes (%) (Auto) 8 % (0-9) Eosinophils (%) (Auto) 1 % (0-3) Basophils (%) (Auto) 1 % (0-3) Neutrophils # (Auto) 4.2 x10^3uL (1.8-7.7) Lymphocytes # (Auto) 2.2 x10^3/uL (1.0-4.8) Monocytes # (Auto) 0.5 x10^3/uL (0.0-1.1) Eosinophils # (Auto) 0.1 x10^3/uL (0.0-0.7) Basophils # (Auto) 0.1 x10^3/uL (0.0-0.2) D-Dimer (Bonnie) < 0.19 mg/L (0.00-0.50) Sodium Level 141 mmol/L (136-145) Potassium Level 3.8 mmol/L (3.5-5.1) Chloride Level 105 mmol/L (98-107) Carbon Dioxide Level 25 mmol/L (21-32) Anion Gap 11 (6-14) Blood Urea Nitrogen 12 mg/dL (7-20) Creatinine 0.9 mg/dL (0.6-1.0) Estimated GFR (Cockcroft-Gault) 79.0 Glucose Level 89 mg/dL (70-99) Calcium Level 8.9 mg/dL (8.5-10.1) Total Bilirubin 0.7 mg/dL (0.2-1.0) Direct Bilirubin 0.2 mg/dL (0.0-0.2) Aspartate Amino Transferase (AST) 12 U/L (15-37) L Alanine Aminotransferase (ALT) 22 U/L (14-59) Alkaline Phosphatase 71 U/L (46-116) Troponin I Quantitative < 0.017 ng/mL (0-0.055) Total Protein 7.5 g/dL (6.4-8.2) Albumin 4.0 g/dL (3.4-5.0) Lipase 116 U/L (73-393) EKG: EKG: [] Radiology/Procedures: Radiology/Procedures: [] Heart Score: Risk Factors: Risk Factors: DM, Current or recent (<one month) smoker, HTN, HLP, family history of CAD, obesity. Risk Scores: Score 0 - 3: 2.5% MACE over next 6 weeks - Discharge Home Score 4 - 6: 20.3% MACE over next 6 weeks - Admit for Clinical Observation Score 7 - 10: 72.7% MACE over next 6 weeks - Early Invasive Strategies Course & Med Decision Making: Course & Med Decision Making Pertinent Labs and Imaging studies reviewed. (See chart for details) [] Dragon Disclaimer: Dragon Disclaimer: This electronic medical record was generated, in whole or in part, using a voice recognition dictation system. Departure Departure: Impression: Primary Impression: COVID-19 Disposition: 01 DC HOME SELF CARE/HOMELESS Condition: STABLE Referrals: LILY ELDRIDGE (PCP) Additional Instructions: You have been tested for or diagnosed with COVID-19. It is an infection caused by a new type of coronavirus. COVID-19 will cause cold-like or mild flu symptoms in most. It can cause more severe symptoms like problems breathing in some. There is no treatment for COVID-19. The body will clear the infection over time. Self-care will help to ease discomfort. Steps to Take: Self-Care Rest as needed. Healthy habits may help you feel better. Steps include: Choose healthy foods including fruits and vegetables. Drink water throughout the day. Get plenty of sleep each night. If you smoke, try to quit. It may ease breathing. Avoid alcohol. Keep Others Healthy The virus can spread to others. Droplets are released every time you sneeze or cough. The droplets can get into the mouth, nose, or eyes of people near you and lead to i nfection. To lower the chances of spreading COVID-19 to others: Stay at home until your doctor has said it is safe to leave. If you tested positive this will mean staying isolated until both of the following are true: At least 7 days have passed since the start of illness. You are free of fever for at least 72 hours without the use of medicine. During this time: - Avoid public areas, events, or transportation. Do not return to work or school until your doctor has said it is safe to do so. - Call ahead if you need to go to a medical center. Let them know you may have COVID-19. It will help them guide you where to go. They may also ask you to wear a facemask when you come to the office. - If you call for emergency medical services, let them know you may have COVID- 19. While at home: - Try to avoid close contact with others. Stay about 6 feet away. - If possible, spend most of your time in a separate room from others. - Use a face mask if you will be in close contact with others such as sharing a room or vehicle. - Have someone wipe down common surfaces in the home. Use household restoration officer every day on areas like doorknobs, counters, or sinks. - Cough or sneeze into a tissue. Throw the tissue away right after use. If a tissue is not available, cough or sneeze into your elbow. - Wash your hands often. Wash them after sneezing or coughing. Use soap and water and wash for at least 20 seconds. Alcohol based hand road cleaner can be used if soap and water is not available. - Do not prepare food for others. Avoid sharing personal items like forks, spoons, or toothbrushes. - Avoid close contact with pets while you are sick. There is no evidence of the virus passing to pets. This is a safety step until more is known about this virus. Isolation can be frustrating. Social interaction can help. Keep in touch with friends and family through phone and tech options. You can still interact with others in your home, just keep a safe distance of about 6 feet. Follow-up: Your doctors office will check in with you to see if there are any changes in your health. You may be asked to keep track of symptoms to share with them. They will also let you know when you are clear to be in public again. Problems to Look Out For: Contact your doctor if your recovery is not going as you expect. Get emergency care if you have problems such as: - Trouble breathing - Nonstop chest pain or pressure - Changes in awareness, confusion, or problems waking - Lips or face have bluish color - Worsening of symptoms If you think you have an emergency, call for emergency medical services right away. [facility] MD Oct 26, 2020 12:30
== END 2020-10-26 12:51 | disposition home or self-care (01) ==
LOC: ER 10:11
DX: U07.1 COVID-19 (principal); Z88.0 Allergy status to penicillin
CPT/HCPCS: 36415; 71045; 80048; 80076; 81025; 83690; 84484; 85025; 85379; 99284

== ENCOUNTER 2021-01-25 20:21 | Emergency (ER) | payer OTHER ==
[~2021-01-25] VITALS: Ht 160 cm; Wt 65.1 kg
[2021-01-25] MEDS ORDERED: ONDANSETRON ODT 4 MG TAB.RAPDIS PO ONE (20:45)
[2021-01-25] MEDS ORDERED: CIPR500T94 PO (21:15)
[2021-01-25] MEDS ORDERED: CIPROFLOXACIN HCL 500 MG TABLET PO ONE (21:15)
--- NOTE | 2021-01-25 21:15 | PHYS DOC ---
Past History Past Medical History: Depression, Other Additional Past Medical Histor: COVID19 DIAGNOSIS ON 10/16/20 Past Surgical History: No Surgical History Additional Past Surgical Histo: wisdom teeth extraction Alcohol Use: Occasionally Drug Use: None Adult General Chief Complaint Chief Complaint: NAUSEA/VOMITING/DIARRHEA HPI HPI Patient is a 20-year-old female who presents with nausea and vomiting. States she ate some boneless chicken wings earlier in the day approximately an hour or so after eating it had a couple episodes of nonbloody nonbilious emesis. States she was doing fine before that. States she had had an episode in about 30 minutes or so. Denies any other recent travel, illnesses, fevers, known ill contacts, chest pain, shortness of breath, abdominal pain, dysuria, hematuria or blood in the stool. Review of Systems Review of Systems Review of systems otherwise unremarkable except noted in HPI. Current Medications Current Medications Current Medications Medications (Trade) Dose Ordered Sig/Melanie Start Time Stop Time Status Last Admin Dose Admin Ondansetron HCl (Zofran Odt) 8 mg 1X ONCE 01/25/21 20:45 01/25/21 20:56 DC Allergies Allergies Allergies Coded Allergies Type Severity Reaction Last Updated Verified Penicillins Allergy Intermediate 11/12/18 Yes Physical Exam Physical Exam Constitutional: Well developed, well nourished, no acute distress, non-toxic appearance. [] Cardiovascular:Heart rate regular rhythm, no murmur [] Lungs & Thorax: Bilateral breath sounds clear to auscultation [] Abdomen: Bowel sounds normal, soft, no tenderness, no masses, no pulsatile masses. [] Back: no CVA tenderness. [] Neurologic: Alert and oriented X 3, n no focal deficits noted. [] Psychologic: Affect normal, judgement normal, mood normal. [] Current Patient Data Vital Signs Vital Signs Date Time Temp Pulse Resp B/P (MAP) Pulse Ox O2 Delivery O2 Flow Rate FiO2 01/25/21 20:32 98.3 89 16 126/71 (89) 97 Room Air Lab Results Laboratory Tests Test 01/25/21 20:59 POC Urine HCG, Qualitative hcg negative (Negative) EKG EKG [] Radiology/Procedures Radiology/Procedures [] Heart Score C/O Chest Pain: No Risk Factors: Risk Factors: DM, Current or recent (<one month) smoker, HTN, HLP, family history of CAD, obesity. Risk Scores: Risk Factors: DM, Current or recent (<one month) smoker, HTN, HLP, family history of CAD, obesity. Course & Med Decision Making Course & Med Decision Making Patient is a 20-year-old female who presents with 2 episodes of nonbloody nonbilious emesis after eating chicken wings Vital signs not concerning. Physical exam noted above. Patient given oral Zofr an. Urinalysis not concerning. negative. On reassessment patient stated symptoms have completely resolved and was p.o. challenge successfully. Given nausea medicine for home. Advised to follow-up with primary care as needed. Given strict return precautions to the ED. Patient grateful, verbalized understanding and agreed with plan of discharge. [] Dragon Disclaimer Dragon Disclaimer This electronic medical record was generated, in whole or in part, using a voice recognition dictation system. Departure Departure: Impression: Primary Impression: Nausea & vomiting Disposition: HOME / SELF CARE / HOMELESS Condition: GOOD Referrals: DELMA CAMACHO-Lor (PCP) Patient Instructions: Urinary Tract Infection Additional Instructions: Please read all the attached information carefully. Please take your nausea medicine as prescribed. Please contact your primary care physician first thing in the morning to update on your ED visit. Please come back to the ED with new or concerning symptoms as discussed. Scripts Ondansetron Hcl (ZOFRAN) 4 Mg Tablet 1 TAB PO PRN Q6HRS PRN for NAUSEA for 2 Days, #6 TAB 2 Refills Prov: JUSTIN BRYAN MD 01/25/21 Ciprofloxacin Hcl (CIPRO) 500 Mg Tablet 1 TAB PO BID for uti for 3 Days, #6 TAB 0 Refills Prov: JUSTIN BRYAN MD 01/25/21 JUSTIN BRYAN MD January 25, 2021 21:15
[2021-01-25 21:33] LABS: CLARITY,URINE CLEAR; COLOR,URINE YELLOW
[2021-01-25 21:34] LABS: BACTERIA,URINE 0 /HPF (0-FEW); BILIRUBIN,URINE NEG (NEG); GLUCOSE,URINE NEG (NEG); NITRITE,URINE NEG (NEG); RBC,URINE 0 /HPF (0-2); UROBILINOGEN,URINE 0.2 mg/dL (0.2 mg/dL); WBC,URINE 0 /HPF (0-4)
[2021-01-25 21:35] LABS: AMORPHOUS SEDIMENT,UR PRESENT /HPF; SQUAMOUS EPITHELIAL CELL,UR MANY /LPF
[2021-01-25 22:26] VITALS: BP 120/74
[2021-01-25] MEDS ORDERED: ONDA4TAB7 PO (22:30)
== END 2021-01-25 22:35 | disposition home or self-care (01) ==
LOC: ER 20:21
DX: R11.2 Nausea with vomiting, unspecified (principal); Z88.0 Allergy status to penicillin
CPT/HCPCS: 81001; 81025; 99283; Q0162

== ENCOUNTER 2021-05-22 18:58 | Emergency (ER) | payer OTHER ==
[~2021-05-22] VITALS: Ht 160 cm; Wt 70.0 kg
[~2021-05-22 18:58] MED LIST changes: +CIPR500T94 PO; -DOXY100C2 PO; +DOXY100C3 PO; +ONDA4TAB7 PO
[2021-05-22] MEDS ORDERED: DOXYCYCLINE HYCLATE 100 MG TABLET PO ONE (19:30)
[2021-05-22] MEDS ORDERED: cefTRIAXone IM 500 MG VIAL. IM ONE (19:30)
[2021-05-22] MEDS ORDERED: DOXY100T PO (19:33)
[2021-05-22] MEDS ORDERED: OLOP5DRO13 OD (19:33)
--- NOTE | 2021-05-22 19:37 | PHYS DOC ---
Past History Past Medical History: Depression, Other Additional Past Medical Histor: COVID19 DIAGNOSIS ON 10/16/20 (CESAR BECKER APRN) Past Surgical History: No Surgical History Additional Past Surgical Histo: wisdom teeth extraction (CESAR BECKER APRN) Alcohol Use: Occasionally Drug Use: None (CESAR BECKER APRN) General Adult EDM: Chief Complaint: CHEST PAIN HPI: HPI: Patient is a 21-year-old female being seen in the ER for cough, sneezing, watery eyes, nasal congestion. Patient states that she feels like she has pain when she tries to take a deep breath. Patient denies any sick exposures, fevers, chest pain. Patient is also requesting STI testing, she states that her partner told her that she they were positive for gonorrhea. Patient denies any vaginal discharge, bleeding. Patient is also requesting to be prophylactically treated for STIs in the ER. Patient is vaccinated for COVID-19. Her vital signs are stable. (CESAR BECKER APRN) Review of Systems: Review of Systems: 14 body systems of the review of systems have been reviewed. See HPI for pertinent positive and negative responses, otherwise all other systems are negative, nonpertinent or noncontributory (CESAR BECKER APRN) Allergies: Allergies: Allergies Coded Allergies Type Severity Reaction Last Updated Verified Penicillins Allergy Intermediate 11/12/18 Yes (CESAR BECKER APRN) Physical Exam: PE: Constitutional: Well developed, well nourished, no acute distress, non-toxic appearance. [] HENT: Normocephalic, atraumatic, bilateral external ears normal, oropharynx moist, no oral exudates, watery right eye with mild erythema noted to conjunctiva, nose normal, mild pain with palpation of maxillary sinuses. [] Eyes: PERRLA, EOMI Neck: Normal range of motion, no tenderness, supple, no stridor. [] Cardiovascular:Heart rate regular rhythm, no murmur [] Lungs & Thorax: Bilateral breath sounds clear to auscultation [] Abdomen: Bowel sounds normal, soft, no tenderness, no masses, no pulsatile masses. [] Skin: Warm, dry, no erythema, no rash. [] Back: Normal range of motion Extremities: No tenderness, no cyanosis, no clubbing, ROM intact, no edema. [] Neurologic: Alert and oriented X 3, normal motor function, normal sensory function, no focal deficits noted. [] Psychologic: Affect normal, judgement normal, mood normal. [] (CESAR BECKER APRN) Current Patient Data: Labs: Laboratory Tests Test 05/22/21 19:44 Bedside Urine HCG, Qualitative hcg negative Current Medications Medications (Trade) Dose Ordered Sig/Melanie Route PRN Reason Start Time Stop Time Status Last Admin Dose Admin Ceftriaxone Sodium (Rocephin Im) 500 mg 1X ONCE IM 05/22/21 19:30 05/22/21 19:47 DC 05/22/21 19:50 Doxycycline Hyclate (Vibra-Tab) 100 mg 1X ONCE PO 05/22/21 19:30 05/22/21 19:47 DC 05/22/21 19:50 Doxycycline Hyclate (Vibra-Tab) 100 mg STK-MED ONCE .ROUTE 05/22/21 19:45 05/22/21 19:48 DC (CESAR BECKER APRN) EKG: EKG: [] (CESAR BECKER APRN) Radiology/Procedures: Radiology/Procedures: [] (CESAR BEKCER APRN) Heart Score: C/O Chest Pain: No (Denies chest pain, states it is hard for her to take a deep breath) Risk Factors: Risk Factors: DM, Current or recent (<one month) smoker, HTN, HLP, family history of CAD, obesity. Risk Scores: Score 0 - 3: 2.5% MACE over next 6 weeks - Discharge Home Score 4 - 6: 20.3% MACE over next 6 weeks - Admit for Clinical Observation Score 7 - 10: 72.7% MACE over next 6 weeks - Early Invasive Strategies (CESAR BECKER APRN) Course & Med Decision Making: Course & Med Decision Making Pertinent Labs and Imaging studies reviewed. (See chart for details) [] Patient is a 21-year-old female being seen in the ER for cough, sneezing, watery eyes, nasal congestion. Patient tested for COVID-19 in the ER and she will be notified of her results when they become available in approximately 2 days. Patient advised to self isolate until she receives these results. Patient's vital signs are stable, she is normal sinus rhythm, no hypoxia. Patient is nonlabored. Patient is requesting medication to help with her watery eyes. She states that she believes it is her seasonal allergies. Patient will be discharged home with Pataday eyedrops. Patient states that she had a positive exposure to gonorrhea and would like to be prophylactically treated for that. She was tested for STIs in the ER and will be notified of her results when they become available. Wet prep was resulted prior to discharge and it was negative for trichomoniasis or BV. Patient prophylactically treated for STIs in the ER. Patient will be discharged home with the remainder of her STI treatment which is doxycycline. Patient advised to take a daily Zyrtec for her allergic rhinitis. Patient vies to follow-up with her primary care provider. I discussed with patient all findings and diagnostic testing as well as the need to follow-up with PCP for further evaluation and treatment or return to the ER if any new or worsening symptoms. Strict return precautions were also discussed at length. Patient voiced understanding and agreement with the plan. Patient is hemodynamically stable at the time of disposition. (CESAR BECKER APRN) Course & Med Decision Making Did not see or evaluate patient. Did not discuss patient with BODY SHOP ESTIMATOR. Agree with BODY SHOP ESTIMATOR's work-up and disposition per note. (JUSTIN BRYAN MD) Dragon Disclaimer: Dragon Disclaimer: This electronic medical record was generated, in whole or in part, using a voice recognition dictation system. (CESAR BECKER APRN) Departure Departure: Impression: Primary Impression: Allergic conjunctivitis Qualified Codes: H10.11 - Acute atopic conjunctivitis, right eye Additional Impressions: Routine screening for STI (sexually transmitted infection) Person under investigation for COVID-19 Disposition: HOME / SELF CARE / HOMELESS Condition: GOOD Referrals: DELMA CAMACHO-C (PCP) Patient Instructions: Allergic Conjunctivitis, Sexually Transmitted Disease Additional Instructions: You are seen in the ER for cough, sneezing, watery eyes, nasal congestion, feeling like he cannot take a deep breath. Your physical exam was reassuring. Your vital signs are stable. You were tested for COVID-19 in the ER today, you will receive those results in 2 days. Please self isolate until you receive those results. You requested to be screened for STIs while in the ER. You will be notified of those results when they become available in approximately 2 days. You were prophylactically treated for STIs. Please start and finish antibiotic completely. You can take Zyrtec daily for your allergies. You are also being prescribed a eyedrop for allergic conjunctivitis which you can use 1 drop in your right eye twice a day. Please follow-up with your primary care provider tomorrow regarding your ER visit. If you develop worsening of your symptoms, shortness of breath, chest pain, high fevers refractory to treatment, intractable nausea or vomiting please return to the ER immediately. EMERGENCY DEPARTMENT GENERAL DISCHARGE INSTRUCTIONS Thank you for coming to [facility] (ED) today and trusting us with you care. We trust that you had a positivie experience in our Emergency Department. If you wish to speak to the department management, you may call the director at [phone]. YOUR FOLLOW UP INSTRUCTIONS ARE FOLLOWS: 1. Do you have a private Doctor? If you do not have a private doctor, please ask for a resource list of physicians or clinics that may be able to assist you with follow up care. 2. The Emergency Physician has interpreted your x-rays. The X-Ray specialist will also review them. If there is a change in the findings, you will be notified in 48 hours when at all possible. 3. A lab test or culture has been done, your results will be reviewed and you will be notified if you need a change in treatment. ADDITIONAL INSTRUCTIONS AND INFORMATION: 1. Your care today has been supervised by a physician who is specially trained in emergency care. Many problems require more than one evaluation for a complete diagnosis and treatment. We recommend that you schedule your follow up appointment as recommended to ensure complete treatment of you illness or injury. If you are unable to obtain follow up care and continue to have a problem, or if your condition worsens, we recommend that you return to the ED. 2. We are not able to safely determine your condition over the phone nor are we able to give sound medical advice over the phone. For these safety reasons, if you call for medical advice we will ask you to come to the ED for further evaluation. 3. If you have any questions regarding these discharge instructions please call the ED at [phone]. SAFETY INFORMATION: In the interest of safety, wellness, and injury prevention; we encourage you to wear your sealbelt, if you smoke; quite smoking, and we encourage family to use a protective helmet for bicycling and other sporting events that present an increased risk for head injury. IF YOUR SYMPTOMS WORSEN OR NEW SYMPTOMS DEVELOP, OR YOU HAVE CONCERNS ABOUT YOUR CONDITION; OR IF YOUR CONDITION WORSENS WHILE YOU ARE WAITING FOR YOUR FOLLOW UP APPOINTMENT; EITHER CONTACT YOUR PRIMARY CARE DOCTOR, THE PHYSICIAN WHOSE NAME AND NUMBER YOU WERE GIVEN, OR RETURN TO THE ED IMMEDIATELY. Scripts Olopatadine HCl (Olopatadine HCl) 5 Ml Drops 1 DROP OD BID for allergic conjuncitivitis for 7 Days, #5 ML 0 Refills Prov: CESAR BECKER APRN 05/22/21 Doxycycline Hyclate (DOXYCYCLINE HYCLATE) 100 Mg Tablet 1 TAB PO BID for sti for 7 Days, #14 TAB 0 Refills Prov: CESAR BECKER APRN 05/22/21 CESAR BECKER APRN May 22, 2021 19:37 JUSTIN BRYAN MD May 22, 2021 22:35
[2021-05-22] MEDS ORDERED: DOXYCYCLINE HYCLATE 100 MG TABLET ONE (19:45)
[2021-05-22 20:25] VITALS: BP 110/72
--- NOTE | 2021-05-22 21:17 | EKG ---
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
[2021-05-24 19:12] LABS: CHLAMYDIA PROBE Negative (Negative)
== END 2021-05-22 20:30 | disposition home or self-care (01) ==
LOC: ER 18:58
DX: Z11.3 Encounter for screening for infections with a predominantly sexual mode of transmission (principal); H10.11 Acute atopic conjunctivitis, right eye; Z20.822 Contact with and (suspected) exposure to COVID-19; Z88.0 Allergy status to penicillin
CPT/HCPCS: 81025; 87491; 87591; 93005; 96372; 99284; J0696; Q0111; U0003; C9803

== ENCOUNTER 2021-05-26 17:06 | Emergency (ER) | payer OTHER ==
[~2021-05-26] VITALS: Ht 160 cm; Wt 70.0 kg
[~2021-05-26 17:06] MED LIST changes: +DOXY100T PO; +OLOP5DRO13 OD
[2021-05-26 18:09] LABS: CLARITY,URINE HAZY; COLOR,URINE YELLOW
[2021-05-26 18:10] LABS: BACTERIA,URINE FEW /HPF (0-FEW); BILIRUBIN,URINE NEG (NEG); GLUCOSE,URINE NEG (NEG); NITRITE,URINE NEG (NEG); SQUAMOUS EPITHELIAL CELL,UR FEW /LPF; UROBILINOGEN,URINE 0.2 mg/dL (0.2 mg/dL); WBC,URINE RARE /HPF (0-4)
--- NOTE | 2021-05-26 18:56 | PHYS DOC ---
Past History Past Medical History: Depression, Other Additional Past Medical Histor: COVID19 DIAGNOSIS ON 10/16/20 (MICHAEL ROMERO APRN) Past Surgical History: Other Additional Past Surgical Histo: wisdom teeth extraction (MICHAEL ROMERO APRN) Alcohol Use: Occasionally Drug Use: None (MICHAEL ROMERO APRN) Adult General Chief Complaint Chief Complaint: VAGINAL BLEEDING HPI HPI Patient is a 21-year-old female who presents emergency department with chief complaint of abnormal periods. Patient reports having a normal period 2 weeks ago, reports starting period type bleeding again today. Patient reports that it has stopped since coming to the emergency department, denies low abdomen cramping, denies vaginal discharge, denies rashes to her vagina, denies increased urinary frequency, urinary pain, dysuria, burning with urination. Patient denies nausea, vomiting, diarrhea. Patient reports wanting to see an OB specialist here in the emergency department today. Patient denies any other physical complaints or physical concerns. (MICHAEL ROMERO APRN) Review of Systems Review of Systems 14 body systems of review of systems have been reviewed. See HPI for pertinent positives and negative responses, otherwise all other systems are negative, nonpertinent or noncontributory. Constitutional: Negative except as outlined in HPI above. Skin: Negative except as outlined in HPI above. Eyes: Negative except as outlined in HPI above. HENT: Negative except as outlined in HPI above. Respiratory: Negative except as outlined in HPI above. Cardiovascular: Negative except as outlined in HPI above. GI: Negative except as outlined in HPI above. : Negative except as outlined in HPI above. Musculoskeletal: Negative except as outlined in HPI above. Integument: Negative except as outlined in HPI above. Neurologic: Negative except as outlined in HPI above. Endocrine: Negative except as outlined in HPI above. Lymphatic: Negative except as outlined in HPI above. Psychiatric: Negative except as outlined in HPI above. (MICHAEL ROMERO APRN) Allergies Allergies Allergies Coded Allergies Type Severity Reaction Last Updated Verified Penicillins Allergy Intermediate 11/12/18 Yes (MICHAEL ROMERO APRN) Physical Exam Physical Exam Constitutional: Well developed, well nourished, no acute distress, non-toxic appearance. 21-year-old female in no apparent distress. HENT: Normocephalic, atraumatic. Eyes: Conjunctiva normal, no discharge. Neck: Normal range of motion, no stridor. Cardiovascular: No cyanosis appreciated, distal cap refill less than 2 seconds. Lungs & Thorax: Patient is in no respiratory distress, no audible adventitious lung sounds appreciated. Abdomen: Nontender, no abnormalities noted. Skin: Warm, dry, no erythema, no rash. Back: No tenderness, no deformities. Extremities: No tenderness, no cyanosis, no clubbing, ROM intact, no edema. Neurologic: Alert and oriented X 3, normal motor function, normal sensory function, no focal deficits noted. Psychologic: Affect normal, judgement normal, mood normal. (MICHAEL ROMERO APRN) Current Patient Data Vital Signs Vital Signs Date Time Temp Pulse Resp B/P (MAP) Pulse Ox O2 Delivery O2 Flow Rate FiO2 05/26/21 17:15 98.3 76 14 127/73 98 Lab Results Laboratory Tests Test 05/26/21 17:15 05/26/21 17:42 Urine Collection Type Void Urine Color Yellow Urine Clarity Hazy Urine pH 6.0 Urine Specific [place] >=1.030 Urine Protein Neg (NEG-TRACE) Urine Glucose (UA) Neg mg/dL (NEG) Urine Ketones (Stick) Neg mg/dL (NEG) Urine Blood Mod (NEG) Urine Nitrite Neg (NEG) Urine Bilirubin Neg (NEG) Urine Urobilinogen Dipstick 0.2 mg/dL (0.2 mg/dL) Urine Leukocyte Esterase Neg (NEG) Urine RBC 6-10 /HPF (0-2) Urine WBC Rare /HPF (0-4) Urine Squamous Epithelial Cells Few /LPF Urine Bacteria Few /HPF (0-FEW) Urine Mucus Mod /LPF POC Urine HCG, Qualitative hcg negative (Negative) (MICHAEL ROMERO APRN) EKG EKG [] (MICHAEL ROMERO APRN) Radiology/Procedures Radiology/Procedures [] (MICHAEL ROMERO APRN) Heart Score C/O Chest Pain: No Risk Factors: Risk Factors: DM, Current or recent (<one month) smoker, HTN, HLP, family history of CAD, obesity. Risk Scores: Risk Factors: DM, Current or recent (<one month) smoker, HTN, HLP, family history of CAD, obesity. (MICHAEL ROMERO APRN) Course & Med Decision Making Course & Med Decision Making Pertinent Labs and Imaging studies reviewed. (See chart for details) 21-year-old female, vital signs reviewed, presents emergency department concerning abnormal uterine bleeding. Patient reports vaginal bleeding stopped upon arrival to the emergency department, patient has refused pelvic examination, patient reports she wants to see an PSYCHIATRIC TECHNICIAN ASSISTANT here in the ER. Discussed with patient there is no PSYCHIATRIC TECHNICIAN ASSISTANT specialty here in this emergency department, however would like to obtain urinalysis assay and test, patient is amenable to this plan. The patient's urine is not infected, she is not per urine test. Discussed findings with patient, strict follow-up with PSYCHIATRIC TECHNICIAN ASSISTANT soon regarding abnormal uterine bleeding, patient is amenable to ED discharge planning. Patient continues to deny abdominal pains, abdominal cramping, and vaginal bleeding at time of discharge, patient is hemodynamically stable and in no apparent distress at time of discharge. Discussed with the patient all findings and diagnostic testing as well as the need to follow-up with their primary care provider for further evaluation and treatment or return to the ED if any new or worsening symptoms. Strict return precautions were also discussed at length, the patient voiced understanding and agreement with the discharge planning. The patient was nontoxic in appearance, in no apparent distress, and hemodynamically stable at the time of disposition. (MICHAEL ROMERO APRN) Dragon Disclaimer Dragon Disclaimer This electronic medical record was generated, in whole or in part, using a voice recognition dictation system. (MICHAEL ROMERO APRN) Departure Departure: Impression: Primary Impression: Abnormal uterine bleeding Disposition: HOME / SELF CARE / HOMELESS Condition: GOOD Referrals: DELMA CAMACHOP-C (PCP) Patient Instructions: Abnormal Uterine Bleeding Additional Instructions: You were seen today in the emergency department for abnormal uterine bleeding. As we discussed, please follow-up with your PSYCHIATRIC TECHNICIAN ASSISTANT specialist this coming week, call tomorrow for an appointment. Your provided urine sample did not show any signs of infection, you are not . Please return to the emergency department for worsening symptoms or other concerns. You may continue to use Tylenol and or Motrin for aches and pains. Thank you for visiting our Emergency Department. It was a pleasure taking care of you today in the emergency dep artment and we appreciate you trusting us with your care. If any additional problems come up don't hesitate to return to visit us. Please follow up with your primary care provider so they can plan additional care if needed and know about the problem that you had. If symptoms worsen come back to the Emergency Department. Any concerning symptoms that start such as chest pain, shortness of air, weakness or numbness on one side of the body, running high fevers or any other concerning symptoms return to the ER. Attending Signature Attending Signature I have participated in the care of this patient and I have reviewed and agree with all pertinent clinical information above including history, exam, and recommendations. (NICHOLE LIZ MD) MICHAEL ROMERO APRN May 26, 2021 18:56 NICHOLE LIZ MD May 30, 2021 08:33
[2021-05-26 19:00] VITALS: BP 112/64
== END 2021-05-26 19:00 | disposition home or self-care (01) ==
LOC: ER 17:10
DX: N93.8 Other specified abnormal uterine and vaginal bleeding (principal); Z88.0 Allergy status to penicillin
CPT/HCPCS: 81001; 81025; 99283

== ENCOUNTER 2021-09-26 12:13 | Emergency (ER) | payer OTHER ==
[~2021-09-26] VITALS: Ht 160 cm; Wt 68.5 kg
[2021-09-26 13:15] VITALS: BP 126/80
--- NOTE | 2021-09-26 13:52 | PHYS DOC ---
Past History Past Medical History: Depression, Other Additional Past Medical Histor: COVID19 DIAGNOSIS ON 10/16/20 Past Surgical History: Other Additional Past Surgical Histo: wisdom teeth extraction Alcohol Use: Occasionally Drug Use: None General Adult EDM: Chief Complaint: COUGH HPI: HPI: Patient is a 21-year-old female who presents to the emergency department with a 3-day history of sore throat, green productive cough, nasal congestion and drainage. Mother states that she has been taking cough drops at home for her symptoms. She is vaccinated for COVID-19 with [place]. They had a positive influenza exposure. Otherwise vital signs are stable and she is in no acute distress. She denies n/v, fevers Review of Systems: Review of Systems: Constitutional: see HPI HENT: See HPI Respiratory: See HPI GI: See HPI Allergies: Allergies: Allergies Coded Allergies Type Severity Reaction Last Updated Verified Penicillins Allergy Intermediate 11/12/18 Yes Physical Exam: PE: Constitutional: Well developed, well nourished, no acute distress, non-toxic appearance. [] HENT: Normocephalic, atraumatic, bilateral external ears normal, oropharynx moist, no oral exudates, nose normal. [] Eyes: PERRL, EOMI, conjunctiva normal, no discharge. [] Neck: Normal range of motion, no tenderness, supple, no stridor. [] Cardiovascular:Heart rate regular rhythm, no murmur [] Lungs & Thorax: Bilateral breath sounds clear to auscultation [] Abdomen: Bowel sounds normal, soft, no tenderness, no masses, no pulsatile masses. [] Skin: Warm, dry, no erythema, no rash. [] Back: Normal range of motion Extremities: No tenderness, no cyanosis, no clubbing, ROM intact, no edema. [] Neurologic: Alert and oriented X 3, normal motor function, normal sensory function, no focal deficits noted. [] Psychologic: Affect normal, judgement normal, mood normal. [] Current Patient Data: Labs: Laboratory Tests Test 09/26/21 13:30 Influenza Type A (Rapid) Negative Influenza Type B (Rapid) Negative EKG: EKG: [] Radiology/Procedures: Radiology/Procedures: [] Heart Score: C/O Chest Pain: N/A Risk Factors: Risk Factors: DM, Current or recent (<one month) smoker, HTN, HLP, family history of CAD, obesity. Risk Scores: Score 0 - 3: 2.5% MACE over next 6 weeks - Discharge Home Score 4 - 6: 20.3% MACE over next 6 weeks - Admit for Clinical Observation Score 7 - 10: 72.7% MACE over next 6 weeks - Early Invasive Strategies Course & Med Decision Making: Course & Med Decision Making Pertinent Labs and Imaging studies reviewed. (See chart for details) [] Patient presents to the emergency department for multiple symptoms including sore throat, productive cough, nasal congestion and drainage. Patient had a positive influenza exposure. She will be tested for influenza and COVID-19. Rapid influenza test was negative. She will be notified of her Covid results when they become available in approximately 2 days and is advised to self isolate until she receives these results. Educated on symptomatic treatment. I discussed with patient all findings and diagnostic testing as well as the need to follow-up with PCP for further evaluation and treatment or return to the ER if any new or worsening symptoms. Strict return precautions were also discussed at length. Patient voiced understanding and agreement with the plan. Patient is hemodynamically stable at the time of disposition. Dragon Disclaimer: aScentias Disclaimer: This electronic medical record was generated, in whole or in part, using a voice recognition dictation system. Departure Departure: Impression: Primary Impression: Person under investigation for COVID-19 Disposition: 01 HOME / SELF CARE / HOMELESS Condition: GOOD Referrals: DELMA CAMACHO-Lor (PCP) Patient Instructions: Cough, Adult Additional Instructions: You were seen in the emergency department today for cough, sore throat nasal congestion and drainage. Your rapid influenza test was negative. We tested you in the emergency department for COVID-19 you'll be notified of those results when they become available in approximately 1 to 2 days. Please self isolate until you receive these results. For your sore throat you can use warm salt water gargles. You can take Tylenol and/ibuprofen for any pain or fevers. For your cough you can take the cough medication that was prescribed for you. Follow-up with your primary care provider tomorrow regarding your ER visit. Please return to the emergency department if you develop shortness of breath, high fevers refractory to treatment, chest pain, tractable nausea or vomiting. Scripts Benzonatate (BENZONATATE) 200 Mg Capsule 1 CAP PO TID for cough for 5 Days, #15 CAP 0 Refills Prov: CESAR BECKER APRN 09/26/21 CESAR BECKER APRN Sep 26, 2021 13:52
[2021-09-26 14:15] LABS: INFLUENZA A PATIENT NEGATIVE (NEGATIVE); INFLUENZA B PATIENT NEGATIVE (NEGATIVE)
[2021-09-26] MEDS ORDERED: BENZ200C47 PO (14:23)
== END 2021-09-26 14:50 | disposition home or self-care (01) ==
LOC: ER 12:13
DX: J02.9 Acute pharyngitis, unspecified (principal); R05.9 Cough, unspecified; R09.81 Nasal congestion; Z20.822 Contact with and (suspected) exposure to COVID-19; Z88.0 Allergy status to penicillin
CPT/HCPCS: 87804; 99283; C9803; U0003

== ENCOUNTER 2021-10-09 21:08 | Emergency (ER) | payer OTHER ==
[~2021-10-09] VITALS: Ht 160 cm; Wt 68.5 kg
[~2021-10-09 21:08] MED LIST changes: +BENZ200C47 PO
--- NOTE | 2021-10-09 21:25 | PHYS DOC ---
Past History Past Medical History: Depression, Other Additional Past Medical Histor: COVID19 DIAGNOSIS ON 10/16/20 (CESAR BECKER APRN) Past Surgical History: Other Additional Past Surgical Histo: wisdom teeth extraction (CESAR BECKER APRN) Alcohol Use: Occasionally Drug Use: None (CESAR BECKER APRN) General Adult EDM: Chief Complaint: MULTIPLE COMPLAINTS HPI: HPI: Patient is a 21-year-old female who presents to the emergency department for multiple complaints. Patient is reporting nasal congestion and drainage, body aches, productive cough, shortness of breath, chest wall pain with deep inspiration and cough, nausea. Patient reported that her symptoms started yesterday. She denies any fevers or chest pain. She reports that her is positive for influenza and her coworker was positive for COVID-19. She has no medical history or surgeries. Her vital signs are stable and she is in no acute distress. (CESAR BECKER APRN) Review of Systems: Review of Systems: Constitutional: negative unless reported in HPI Eyes: negative unless reported in HPI HENT: negative unless reported in HPI Respiratory: negative unless reported in HPI Cardiovascular: negative unless reported in HPI GI: negative unless reported in HPI : negative unless reported in HPI Musculoskeletal: negative unless reported in HPI Integument: negative unless reported in HPI Neurologic: negative unless reported in HPI Endocrine: negative unless reported in HPI Lymphatic: negative unless reported in HPI Psychiatric: negative unless reported in HPI (CESAR BECKER APRN) Allergies: Allergies: Allergies Coded Allergies Type Severity Reaction Last Updated Verified Penicillins Allergy Intermediate 11/12/18 Yes (CESAR BECKER APRN) Physical Exam: PE: Constitutional: Well developed, well nourished, no acute distress, non-toxic appearance. [] HENT: Normocephalic, atraumatic, bilateral external ears normal, oropharynx moist, no oral exudates, nose normal. [] Eyes: PERRL, EOMI, conjunctiva normal, no discharge. [] Neck: Normal range of motion, no tenderness, supple, no stridor. [] Cardiovascular:Heart rate regular rhythm, no murmur, chest wall pain reproducible with deep inspiration and cough [] Lungs & Thorax: Bilateral breath sounds clear to auscultation [] Abdomen: Bowel sounds normal, soft, no tenderness, no masses, no pulsatile masses. [] Skin: Warm, dry, no erythema, no rash. [] Back: Normal range of motion Extremities: No tenderness, no cyanosis, no clubbing, ROM intact, no edema. [] Neurologic: Alert and oriented X 3, normal motor function, normal sensory function, no focal deficits noted. [] Psychologic: Affect normal, judgement normal, mood normal. [] (CESAR BECKER APRN) Current Patient Data: Labs: Laboratory Tests Test 10/09/21 21:20 10/09/21 21:30 Urine Collection Type Clean catch Urine Color Yellow Urine Clarity Clear Urine pH 6.0 Urine Specific [place] 1.025 Urine Protein Trace Urine Glucose (UA) Neg mg/dL Urine Ketones (Stick) Neg mg/dL Urine Blood Neg Urine Nitrite Neg Urine Bilirubin Neg Urine Urobilinogen Dipstick 2.0 mg/dL Urine Leukocyte Esterase Neg Urine RBC 0 /HPF Urine WBC 0 /HPF Urine Squamous Epithelial Cells Few /LPF Urine Bacteria 0 /HPF Bedside Urine HCG, Qualitative hcg negative (CESAR BECKER APRN) EKG: EKG: [] (CESAR BECKER APRN) Radiology/Procedures: Radiology/Procedures: [] (CESAR BECKER APRN) Heart Score: C/O Chest Pain: No Risk Factors: Risk Factors: DM, Current or recent (<one month) smoker, HTN, HLP, family history of CAD, obesity. Risk Scores: Score 0 - 3: 2.5% MACE over next 6 weeks - Discharge Home Score 4 - 6: 20.3% MACE over next 6 weeks - Admit for Clinical Observation Score 7 - 10: 72.7% MACE over next 6 weeks - Early Invasive Strategies (CESAR BECKER APRN) Course & Med Decision Making: Course & Med Decision Making Pertinent Labs and Imaging studies reviewed. (See chart for details) [] Patient presents to the emergency department for nasal congestion/drainage, body aches, cough, shortness of breath, nausea. Patient will be tested for inf luenza and COVID-19. Her rapid influenza test was positive and her rapid COVID test was negative. Chest x-ray performed to rule out pneumonia that showed no acute findings as read by this ZIG [employer]AG STITCHER and supervising physician. Urinalysis showed no acute findings.. Patient's labs are stable and she is in no distress. Patient educated on symptomatic treatment. I discussed with patient all findings and diagnostic testing as well as the need to follow-up with PCP for further evaluation and treatment or return to the ER if any new or worsening symptoms. Strict return precautions were also discussed at length. Patient voiced understanding and agreement with the plan. Patient is hemodynamically stable at the time of disposition. (CESAR BECKER APRN) Dragon Disclaimer: Dragon Disclaimer: This electronic medical record was generated, in whole or in part, using a voice recognition dictation system. (CESAR BECKER APRN) Departure Departure: Impression: Primary Impression: Influenza A Disposition: HOME / SELF CARE / HOMELESS Condition: GOOD Referrals: DELMA CAMACHO (PCP) Patient Instructions: Influenza A (H1N1) Additional Instructions: You are seen in the emergency department today for multiple complaints. Your rapid influenza test was positive and your rapid COVID test was negative. Urinalysis was negative.. Chest x-ray was performed that showed pneumonia that showed no acute findings. You are being discharged home with a prescription for Tamiflu. You can take Delsym [id number] for your cough. Increase your fl uids to thin your secretions. Take Tylenol and ibuprofen for any pain or fevers. For your nasal congestion you can also use Flonase [id number]-[id number] and saline nose sprays. Follow-up with your primary care provider tomorrow regarding your ER visit. Return to the emergency department if you develop high fevers refractory to treatment, intractable nausea or vomiting, shortness of breath, chest pain, weakness. Scripts Oseltamivir Phosphate (TAMIFLU) 75 Mg Capsule 1 CAP PO BID for flu for 5 Days, #10 CAP 0 Refills Prov: CESAR BECKER APRN 10/09/21 Attending Signature Attending Signature I have participated in the care of this patient and I have reviewed and agree with all pertinent clinical information above including history, exam, and recommendations. (NICHOLE LIZ MD) CESAR BECKER APRN Oct 09, 2021 21:25 NICHOLE LIZ MD Oct 10, 2021 01:51
[2021-10-09 21:45] LABS: BACTERIA,URINE 0 /HPF (0-FEW); BILIRUBIN,URINE NEG (NEG); CLARITY,URINE CLEAR; COLOR,URINE YELLOW; GLUCOSE,URINE NEG (NEG); NITRITE,URINE NEG (NEG); RBC,URINE 0 /HPF (0-2); WBC,URINE 0 /HPF (0-4)
[2021-10-09 21:46] LABS: SQUAMOUS EPITHELIAL CELL,UR FEW /LPF
[2021-10-09 21:57] LABS: INFLUENZA B PATIENT NEGATIVE (NEGATIVE)
[2021-10-09 21:59] LABS: INFLUENZA A PATIENT POSITIVE (NEGATIVE)
[2021-10-09] MEDS ORDERED: OSEL75CA PO (22:01)
[2021-10-09 22:10] VITALS: BP 109/67
--- NOTE | 2021-10-09 22:49 | RAD ---
EXAM: XR CHEST 1V 10/09/2021 9:30 PM CLINICAL INDICATION: Shortness of air COMPARISON: Chest radiograph 10/26/2020 TECHNIQUE: AP view of the chest FINDINGS: The heart is normal size. Lungs are well-expanded. There are subtle right perihilar opacit ies suspicious for pneumonia. The left lung is clear. No pleural effusion or pneumothorax. No acute o sseous abnormality. IMPRESSION: Subtle right perihilar opacities suspicious for pneumonia. Electronically signed by: Susan Sandoval MD (10/09/2021 10:46 PM) [id number]
== END 2021-10-09 22:10 | disposition home or self-care (01) ==
LOC: ER 21:08
DX: J10.1 Influenza due to other identified influenza virus with other respiratory manifestations (principal); Z20.822 Contact with and (suspected) exposure to COVID-19; Z88.0 Allergy status to penicillin
CPT/HCPCS: 71045; 81001; 81025; 87428; 99284; C9803; U0003

== ENCOUNTER 2021-10-29 13:21 | Emergency (ER) | payer OTHER ==
[~2021-10-29] VITALS: Ht 160 cm; Wt 68.5 kg
[~2021-10-29 13:21] MED LIST changes: +OSEL75CA PO
[2021-10-29 13:25] VITALS: BP 124/55
[2021-10-29] MEDS ORDERED: IBUPROFEN 600 MG TABLET. PO ONE (13:45)
--- NOTE | 2021-10-29 14:04 | RAD ---
Three-view left foot dated 10/29/2021. No comparison available. CLINICAL INDICATION: Pain. FINDINGS: 3 views left foot show normal bony alignment. No displaced fracture. No periostitis or bone destructi on. No acute osseous or articular abnormality. IMPRESSION: No acute radiographic abnormality. Electronically signed by: Radames Silva MD (10/29/2021 2:02 PM) [id number]
--- NOTE | 2021-10-29 14:21 | PHYS DOC ---
Past History Past Medical History: Depression, Other Additional Past Medical Histor: COVID19 DIAGNOSIS ON 10/16/20 (RADAMES ROMERO APRN) Past Surgical History: Other Additional Past Surgical Histo: wisdom teeth extraction (RADAMES ROMERO APRN) Alcohol Use: None Drug Use: None (RADAMES ROMERO APRN) Adult General Chief Complaint Chief Complaint: LACERATION/AVULSION HPI HPI Patient is a 21-year-old female presents emergency department with chief complaint of left foot pain with a laceration to her left foot after accidentally kicking a metal heater vent just prior to arrival to the emergency department. Patient reports her last tetanus immunization was less than 5 years ago. Did not take any pain medications prior to arrival to the ER. Denies other injury to her body. Reports her last menstrual cycle was October 132021. Reports a 5 out of 10 pain. (RADAMES ROMERO APRN) Review of Systems Review of Systems 14 body systems of review of systems have been reviewed. See HPI for pertinent positives and negative responses, otherwise all other systems are negative, nonpertinent or noncontributory. Constitutional: Negative except as outlined in HPI above. Skin: Negative except as outlined in HPI above. Eyes: Negative except as outlined in HPI above. HENT: Negative except as outlined in HPI above. Respiratory: Negative except as outlined in HPI above. Cardiovascular: Negative except as outlined in HPI above. GI: Negative except as outlined in HPI above. : Negative except as outlined in HPI above. Musculoskeletal: Negative except as outlined in HPI above. Integument: Negative except as outlined in HPI above. Neurologic: Negative except as outlined in HPI above. Endocrine: Negative except as outlined in HPI above. Lymphatic: Negative except as outlined in HPI above. Psychiatric: Negative except as outlined in HPI above. (RADAMES ROMERO APRN) Current Medications Current Medications Current Medications Medications (Trade) Dose Ordered Sig/Melanie Start Time Stop Time Status Last Admin Dose Admin Ibuprofen (Motrin) 600 mg 1X ONCE 10/29/21 13:45 10/29/21 13:56 DC 10/29/21 13:50 600 MG (RADAMES ROMERO APRN) Allergies Allergies Allergies Coded Allergies Type Severity Reaction Last Updated Verified Penicillins Allergy Intermediate 11/12/18 Yes (RADAMES ROMERO APRN) Physical Exam Physical Exam Constitutional: Well developed, well nourished, no acute distress, non-toxic appearance. 21-year-old female in no apparent distress. HENT: Normocephalic, atraumatic. Eyes: Conjunctiva normal, no discharge. Neck: Normal range of motion, no stridor. Cardiovascular: No cyanosis appreciated, distal cap refill less than 2 seconds. Lungs & Thorax: Patient is in no respiratory distress, no audible adventitious lung sounds appreciated. Abdomen: Nontender, no abnormalities noted. Skin: Warm, dry, no erythema, no rash. Back: No tenderness, no deformities. Extremities: No tenderness, no cyanosis, no clubbing, ROM intact, no edema. Except for left foot, 2 cm linear abrasion to top of foot, 2 mm abrasion to tip of left #4 toe, no bleeding. No contusion appreciated, no deformity appreciated, 2+ dorsalis pedis/posterior tibial pulses equal bilaterally. Distal cap refill less than 2seconds feet equal bilaterally. Neurologic: Alert and oriented X 3, normal motor function, normal sensory function, no focal deficits noted. Psychologic: Affect normal, judgement normal, mood normal. (RADAMES ROMERO APRN) Current Patient Data Vital Signs Vital Signs Date Time Temp Pulse Resp B/P (MAP) Pulse Ox O2 Delivery O2 Flow Rate FiO2 10/29/21 13:25 98.0 78 16 124/55 (78) 98 Room Air (RADAMES ROMERO APRN) EKG EKG [] (RADAMES ROMERO APRN) Radiology/Procedures Radiology/Procedures REASON: Blunt trauma, foot pain PROCEDURE: FOOT LEFT 3V Three-view left foot dated 10/29/2021. No comparison available. CLINICAL INDICATION: Pain. FINDINGS: 3 views left foot show normal bony alignment. No displaced fracture. No periostitis or bone destruction. No acute osseous or articular abnormality. IMPRESSION: No acute radiographic abnormality. Electronically signed by: Radames Silva MD (10/29/2021 2:02 PM) [id number] (RADAMES ROMERO APRN) Heart Score C/O Chest Pain: No Risk Factors: Risk Factors: DM, Current or recent (<one month) smoker, HTN, HLP, family history of CAD, obesity. Risk Scores: Risk Factors: DM, Current or recent (<one month) smoker, HTN, HLP, family history of CAD, obesity. (RADAMES ROMERO APRN) Course & Med Decision Making Course & Med Decision Making Pertinent Labs and Imaging studies reviewed. (See chart for details) 21-year-old female, vital signs reviewed, presents emergency department concerning left foot injury after kicking a metal floor event just prior to arrival to the ER. Physical examination concerning for minor superficial abrasion to top of left foot and #4 toe distal tip. Will x-ray related to patient's explanation of events. Cleanse abrasions and apply antibiotic ointment. X-rays negative for acute fracture, discussed x-ray findings with patient, daily abrasion care for foot, return to ER precautions or concerns, follow-up primary care for reevaluation soon, patient gave verbal understanding of and is amenable to ED discharge planning. Discussed with the patient all findings and diagnostic testing as well as the need to follow-up with their primary care provider for further evaluation and treatment or return to the ED if any new or worsening symptoms. Strict return precautions were also discussed at length, the patient voiced understanding and agreement with the discharge planning. The patient was nontoxic in appearance, in no apparent distress, and hemodynamically stable at the time of disposition. (RADAMES ROMERO APRN) Dragon Disclaimer Dragon Disclaimer This electronic medical record was generated, in whole or in part, using a voice recognition dictation system. (RADAMES ROMERO APRN) Attending Co-Sign The patient was seen and interviewed as well as examined at the bedside. The chart was reviewed. The case was discussed. Agree with the plan of care. (TASH HICKS DO) Departure Departure: Impression: Primary Impression: Abrasion, left foot, initial encounter Disposition: HOME / SELF CARE / HOMELESS Condition: GOOD Referrals: DELMA CAMACHO TELEVISION MECHANIC-C (PCP) Patient Instructions: Abrasions Additional Instructions: You were seen today in the emergency department for left foot injury. X-rays of your left foot were not concerning for any broken bones or other injury. You do have minor abrasions to your left foot, please keep clean and dry, daily cleansing with mild soap and water and application of an antibiotic ointment such as bacitracin or Neosporin 2-3 times a day, you may cover with a Band-Aid when wearing socks and shoes. You had indicated your tetanus immunization is up-to-date, watch for signs and symptoms of infection. Infection is unlikely if you wash with soap and water and apply antibiotic ointment daily. Follow-up with your primary care provider for reevaluation this week on the [facility]. Return to the emergency department for worsening symptoms or other concerns. Thank you for visiting our Emergency Department. It was a pleasure taking care of you today in the emergency department and we appreciate you trusting us with your care. If any additional problems come up don't hesitate to return to visit us. Please follow up with your primary care provider so they can plan additional care if needed and know about the problem that you had. If symptoms worsen come back to the Emergency Department. Any concerning symptoms that start such as chest pain, shortness of air, weakness or numbness on one side of the body, running high fevers or any other concerning symptoms return to the ER. EMERGENCY DEPARTMENT GENERAL DISCHARGE INSTRUCTIONS Thank you for coming to [facility] (ED) today and trusting us with you care. We trust that you had a positivie experience in our Emergency Department. If you wish to speak to the department management, you may call the director at [phone]. YOUR FOLLOW UP INSTRUCTIONS ARE FOLLOWS: 1. Do you have a private Doctor? If you do not have a private doctor, please ask for a resource list of physicians or clinics that may be able to assist you with fol low up care. 2. The Emergency Physician has interpreted your x-rays. The X-Ray specialist will also review them. If there is a change in the findings, you will be notified in 48 hours when at all possible. 3. A lab test or culture has been done, your results will be reviewed and you will be notified if you need a change in treatment. ADDITIONAL INSTRUCTIONS AND INFORMATION: 1. Your care today has been supervised by a physician who is specially trained in emergency care. Many problems require more than one evaluation for a complete diagnosis and treatment. We recommend that you schedule your follow up appointment as r ecommended to ensure complete treatment of you illness or injury. If you are unable to obtain follow up care and continue to have a problem, or if your condition worsens, we recommend that you return to the ED. 2. We are not able to safely determine your condition over the phone nor are we able to give sound medical advice over the phone. For these safety reasons, if you call for medical advice we will ask you to come to the ED for further evaluation. 3. If you have any questions regarding these discharge instructions please call the ED at [phone]. SAFETY INFORMATION: In the interest of safety, wellness, and injury prevention; we encourage you to wear your sealbelt, if you smoke; quite smoking, and we encourage family to use a protective helmet for bicycling and other sporting events that present an increased risk for head injury. IF YOUR SYMPTOMS WORSEN OR NEW SYMPTOMS DEVELOP, OR YOU HAVE CONCERNS ABOUT YOUR CONDITION; OR IF YOUR CONDITION WORSENS WHILE YOU ARE WAITING FOR YOUR FOLLOW UP APPOINTMENT; EITHER CONTACT YOUR PRIMARY CARE DOCTOR, THE PHYSICIAN WHOSE NAME AND NUMBER YOU WERE GIVEN, OR RETURN TO THE ED IMMEDIATELY. RADAMES ROMERO APRN Oct 29, 2021 14:21 TASH HICKS DO Oct 30, 2021 06:10
[2021-10-29] MEDS ORDERED: BACITRACIN ZINC TOPICAL OINT PACKET. TP ONE ×2 (14:28→14:30)
== END 2021-10-29 14:31 | disposition home or self-care (01) ==
LOC: ER 13:21
DX: S90.812A Abrasion, left foot, initial encounter (principal); F32.9 Major depressive disorder, single episode, unspecified; Z88.0 Allergy status to penicillin; W22.8XXA Striking against or struck by other objects, initial encounter; Y93.89 Activity, other specified; Y92.89 Other specified places as the place of occurrence of the external cause; Y99.8 Other external cause status
CPT/HCPCS: 73630; 99283

== ENCOUNTER 2022-02-14 20:46 | Emergency (ER) | payer OTHER ==
[~2022-02-14] VITALS: Ht 160 cm; Wt 68.5 kg
[~2022-02-14 20:46] MED LIST changes: -OLOP5DRO13 OD; +OLOP5DRO25 OD
[2022-02-14 20:50] VITALS: BP 123/76
--- NOTE | 2022-02-14 21:52 | PHYS DOC ---
Past History Past Medical History: Depression, Other Additional Past Medical Histor: COVID19 DIAGNOSIS ON 10/16/20 Past Surgical History: Other Additional Past Surgical Histo: wisdom teeth extraction Alcohol Use: None Drug Use: None General Adult EDM: Chief Complaint: SORE THROAT HPI: HPI: ".. I ve had a sore throat now for 4 days.. and it is getting worse.. I went to Urgent care.. but they did not swab.. me..." Patient is a 22 year old female who presents with above hx and complaints of pharyngitis for the past 4 days. Patient has had subjective fevers. No recent travel or specific ill contacts . History of immunosuppression. Patient did get Moderna x 2. No flu vaccination. Follows with Henna Berumen for primary. Review of Systems: Review of Systems: Constitutional: Subjective complaints of fever Eyes: Denies change in visual acuity HENT: Complaint sore throat Respiratory: Denies cough or shortness of breath Cardiovascular: Denies chest pain or edema GI: Denies abdominal pain, nausea, vomiting, bloody stools or diarrhea : Denies dysuria Musculoskeletal: Denies back pain or joint pain Integument: Denies rash Neurologic: Denies headache, focal weakness or sensory changes Endocrine: Denies polyuria or polydipsia Lymphatic: Denies swollen glands Psychiatric: Denies depression or anxiety Family History: Family History: Noncontributory to presentation Current Medications: Current Meds: Seen for home meds Allergies: Allergies: Allergies Coded Allergies Type Severity Reaction Last Updated Verified Penicillins Allergy Intermediate 11/12/18 Yes Physical Exam: PE: Constitutional: Moderate acute distress, non-toxic appearance. [] HENT: Normocephalic, atraumatic, bilateral external ears normal, oropharynx moist, postnasal drainage, mild injection to pharynx, no oral exudates, nose slightly swollen turbinates and clear rhinorrhea Eyes: PERRLA, EOMI, conjunctiva normal, no discharge. [] Neck: Normal range of motion, no tenderness, supple, no stridor. [] Cardiovascular:Heart rate regular rhythm, no murmur [] Lungs & Thorax: Bilateral breath sounds equal at apex auscultation [] Abdomen: Bowel sounds normal, soft, no tenderness, no masses, no pulsatile masses. [] Skin: Warm, dry, no erythema, no rash. [] Back: No tenderness, no CVA tenderness. [] Extremities: No tenderness, no cyanosis, no clubbing, ROM intact, no edema. [] Neurologic: Alert and oriented X 3, normal motor function, normal sensory function, no focal deficits noted. [] Psychologic: Affect anxious, judgement normal, mood normal. [] EKG: EKG: [] Radiology/Procedures: Radiology/Procedures: [] Heart Score: C/O Chest Pain: N/A Risk Factors: Risk Factors: DM, Current or recent (<one month) smoker, HTN, HLP, family history of CAD, obesity. Risk Scores: Score 0 - 3: 2.5% MACE over next 6 weeks - Discharge Home Score 4 - 6: 20.3% MACE over next 6 weeks - Admit for Clinical Observation Score 7 - 10: 72.7% MACE over next 6 weeks - Early Invasive Strategies Course & Med Decision Making: Course & Med Decision Making Pertinent Labs and Imaging studies reviewed. (See chart for details) Take Tylenol and ibuprofen as needed for discomfort. Gargle) 4 times a day. Liquid Benadryl sometimes is helpful 25 mg up to 4 times a day. Follow-up with primary care. Return if any concerns. Impression: 1. Viral pharyngitis [] Dragon Disclaimer: Dragon Disclaimer: This electronic medical record was generated, in whole or in part, using a voice recognition dictation system. Departure Departure: Referrals: DELMA CAMACHO-C (PCP) Pat Disclaimer This chart was dictated in whole or in part using Voice Recognition software in a busy, high-work load, and often noisy Emergency Department environment. It may contain unintended and wholly unrecognized errors or omissions. Dragon Disclaimer This chart was dictated in whole or in part using Voice Recognition software in a busy, high-work load, and often noisy Emergency Department environment. It may contain unintended and wholly unrecognized errors or omissions. NICHOLE LIZ MD February 14, 2022 21:52
[2022-02-14] MEDS ORDERED: predniSONE 10 MG TABLET. PO ONE (22:00)
[2022-02-14] MEDS ORDERED: ACETAMINOPHEN 500 MG TABLET PO ONE (22:00)
[2022-02-14] MEDS ORDERED: IBUPROFEN 400 MG TABLET. PO ONE (22:00)
[2022-02-14 22:26] LABS: INFLUENZA A PATIENT NEGATIVE (NEGATIVE); INFLUENZA B PATIENT NEGATIVE (NEGATIVE)
== END 2022-02-14 22:40 | disposition home or self-care (01) ==
LOC: ER 20:46
DX: J02.8 Acute pharyngitis due to other specified organisms (principal); Z20.822 Contact with and (suspected) exposure to COVID-19; Z88.0 Allergy status to penicillin
CPT/HCPCS: 87070; 87147; 87428; 87880; 99284; J7512